=== PATIENT | female | born 1975 | race Two or more races ===

== ENCOUNTER 2024-11-18 11:08 | Inpatient (IN) | payer MEDICAID, SELFPAY ==
[2024-11-18] VITALS (15 sets, daily range): BP systolic 112–145; BP diastolic 64–87; PULSE 60–81; RESP 15–18; TEMP 36.3–36.7; O2SAT 98–100; BMI 31.4; BMI 24.6; BMI 23.0; BMI 24.0
--- NOTE | 2024-11-18 11:40 | XR_ITS ---
Examination: PA lateral chest 2 views TECHNIQUE: Upright PA lateral chest 2 views Date and time: November 18, 2024 1148 hours INDICATIONS: Shortness of breath coughing beginning 4 days ago. FINDINGS: Mild prominence left ventricle. No pneumonia or pulmonary edema. Prominent osteopenia IMPRESSION: No pneumonia or pulmonary edema
--- NOTE | 2024-11-18 11:41 | PD.EDRME ---
Rapid Medical Screening Exam RME Arrival date/time: 11/18/24 11:08 49-year-old female with a history of iron deficiency anemia, hypertension presents to the emergency room with a chief complaint of weakness, fatigue, cough, shortness of breath x 3 days. Patient was also sent to the emergency room for low hemoglobin level by her primary care provider. I have greeted and performed a focused initial assessment of this patient. A comprehensive ED assessment and evaluation of the patient, analysis of all test results, and completion of the medical decision making process will be conducted by additional ED providers. Chief Complaint: Flu Like Symptoms Time Seen by Provider: 11/18/24 11:28 Vital signs: Vital Signs Temperature 98.1 F 11/18/24 11:25 Pulse Rate 78 11/18/24 11:25 Respiratory Rate 18 11/18/24 11:25 Blood Pressure 140/79 H 11/18/24 11:25 Pulse Oximetry (%) 100 11/18/24 11:25 Oxygen Delivery Method Room Air 11/18/24 11:25 Vital signs reviewed by provider: Yes
[2024-11-18 12:14] LABS: Hematocrit 21.5 % (36.0-46.0); Immature Granulocytes Auto 0.01 Thou/mm3 (0.00-0.00); Mean Corpuscular Volume 63 fL (80-100); Monocytes % (Auto) 9 % (0-12); Neutrophils % (Auto) 47 % (37-80); Platelet Count 255 Thou/mm3 (140-440); RDW Standard Deviation 46.2 fL (36.4-46.3); Red Blood Count 3.42 Miln/mm3 (4.00-5.20)
[2024-11-18 12:16] LABS: Basophils % (Auto) 1 % (0-2.5); Eosinophils # (Auto) 0.4 Thou/mm3 (0.0-0.5); Eosinophils % (Auto) 8 % (0-10); Immature Granulocytes % (Auto) 0 % (0-0); Lymphocytes # (Auto) 1.6 Thou/mm3 (1.0-4.8); Lymphocytes % (Auto) 35 % (10-50); Monocytes # (Auto) 0.4 Thou/mm3 (0.0-0.8); Neutrophils # (Auto) 2.2 Thou/mm3 (1.8-7.7); Nucleated Red Blood Cell % 0 /100 WBC (0); White Blood Count 4.6 Thou/mm3 (3.6-11.0)
[2024-11-18 12:29] LABS: COVID-19 Antigen (In-House) Negative (Negative)
[2024-11-18 12:32] LABS: Partial Thromboplastin Time 24.6 Seconds (22.0-36.0); Prothrombin Time 10.5 Seconds (9.0-12.2)
[2024-11-18 12:37] LABS: Alanine Aminotransferase 10 U/L (10-49); Albumin, Serum 4.2 gm/dL (3.5-5.0); Albumin/Globulin Ratio 1.6 (1.2-2.2); Alkaline Phosphatase 39 U/L (46-116); Anion Gap 8 (7-16); Aspartate Amino Transferase 17 U/L (0-34); BUN/Creatinine Ratio 17 Ratio (12-20); Bilirubin,Total 0.6 mg/dL (0.3-1.2); Blood Urea Nitrogen 12 mg/dL (9-23); Carbon Dioxide 24.3 mMol/L (20.0-31.0); Chloride 109 mMol/L (98-107); Creatinine (Component) 0.7 mg/dL (0.6-1.3); Estimated Creatinine Clearance 67.3 mL/min (>60); Globulin 2.6 gm/dL (2.3-3.5); Glucose 121 mg/dL (74-106); Hemoglobin 5.8 g/dL (12.0-16.0); Osmolality,Calculated 281 (275-295); Potassium 3.4 mMol/L (3.4-5.1); Sodium 141 mMol/L (136-145); Total Protein 6.8 gm/dL (5.7-8.2); eGFR > 60 See Note
--- NOTE | 2024-11-18 13:31 | EDNOTE_ITS ---
<Statement entered by Christie Rosario MD - 11/19/24 06:10> As co-signing physician, I was present and available for consult prn. I concur with the plan and care as documented by the midlevel provider. ED General RME/HPI General Chief complaint: Flu Like Symptoms Stated complaint: FLU SYMPTOMS FOR 4 DAYS Time Seen by Provider: 11/18/24 11:28 Arrival date/time: 11/18/24 11:08 RME / HPI RME / HPI narrative: 49-year-old female with a history of iron deficiency anemia, hypertension presents to the emergency room with a chief complaint of weakness, fatigue, cough, shortness of breath x 3 days. Patient was also sent to the emergency room for low hemoglobin level by her primary care provider. Patient has been having chronic anemia, secondary to heavy menstruation, patient had irregular menstruation, sometimes he had 2 cycle in 1 month, currently patient is on day #5 and still bleeding a lot, since patient arrived patient is already changed at least 2 pads already soak, for the last 2 hours. She was supposed to be having hysterectomy with Dr. Barrera however it was postponed and canceled. Patient also complained of right lower abdominal pain and discomfort getting worse for the last several weeks. Related Data Home Medications ?Medication ?Instructions ?Recorded ?Confirmed metoprolol tartrate 25 mg tablet 25 mg PO QDAY 0 04/28/20 Allergies Allergy/AdvReac Type Severity Reaction Status Date / Time No Known Allergies Allergy Verified 11/18/24 11:11 Review of Systems Review of Systems Narrative Review of Systems: Review of system reviewed and within normal limits except mentioned in HPI ED Exam Narrative Physical exam: VITAL SIGNS: Reviewed. GENERAL APPEARANCE: Alert and interactive, follows commands, no acute distress, HEAD AND FACE: Non-traumatic. ENT: PERRL, pale conjunctiva eyelid no trauma, Mucous membrane moist. NECK: Supple, nontender, no nuchal rigidity. CHEST: No tenderness, no crepitus, no paradoxical movement, no retractions. LUNGS: Clear, well ventilated, symmetric, no rales, no wheezing, no ronchi, no stridor, good breath sounds bilaterally. HEART: Regular rate, regular rhythm, no murmur, no gallops. ABDOMEN: Soft, positive bowel sounds, nondistended, no guarding, nontender, no rebound, no masses, RECTAL: Deferred. GENITAL: Deferred. NEUROLOGICAL: Gross motor function intact sensory function intact, Appropriate for age. MUSCULOSKELETAL: low back nontender, full range of motion. EXTREMITIES: Nontender, full range of motion. SKIN: Color., dry, no rash, no lacerations, no abrasions, no contusions. LYMPHATICS: Deferred. Course Quality Measures none Orders Category Date Time Status Admit to Inpatient Status Routine Admission 11/18/24 17:28 Active Patient Condition Routine Admission 11/18/24 17:25 Ordered Activity as Tolerated Routine Care 11/18/24 17:25 Ordered Bedside Influenza A&B Antigen Test NOW Care 11/18/24 11:40 Completed Intake and Output QSHIFT Care 11/18/24 17:30 Ordered MRI Screening NOW Care 11/18/24 17:27 Active Notify provider NEEDED Care 11/18/24 17:25 Active Transfuse,blood/blood products ONCE Care 11/18/24 13:35 Active Consult to Gynecology Stat Cons 11/18/24 15:04 Ordered Diet Regular Diet 11/18/24 Dinner Active MR pelvis w con Stat Exams 11/18/24 Ordered US pelvic complete Stat Exams 11/18/24 15:04 Completed XR chest 2V Stat Exams 11/18/24 11:40 Completed CA 125 Stat Lab 11/18/24 17:32 Completed CBC AM DRAW Lab 11/19/24 05:00 Ordered CBC Stat Lab 11/18/24 11:57 Completed CEA [Carcinoembryonic Antigen] Stat Lab 11/18/24 17:32 Completed CMP [Comprehensive Metabolic Panel] Stat Lab 11/18/24 11:57 Completed COVID-19 Antigen (In-House) Stat Lab 11/18/24 11:44 Completed Comprehensive Metabolic Panel AM DRAW Lab 11/19/24 05:00 Ordered FFP [Fresh Frozen Plasma] Stat Lab 11/18/24 11:57 Results FSH [Follicle Stimulating Hormone] Stat Lab 11/18/24 11:57 Completed PT [Prothrombin Time with INR] Stat Lab 11/18/24 11:57 Completed PTT [Partial Thromboplastin Time] Stat Lab 11/18/24 11:57 Completed Partial Thromboplastin Time AM DRAW Lab 11/19/24 05:00 [address] Review Blood Smear Stat Lab 11/18/24 11:57 Completed Prothrombin Time with INR AM DRAW Lab 11/19/24 05:00 Ordered Red Blood Cells Stat Lab 11/18/24 11:57 Results Type and Screen Stat Lab 11/18/24 11:57 Results Acetaminophen Tab [Tylenol ES Tab] Med 11/18/24 13:34 Discontinued 500 mg PO X1 ONE Acetaminophen Tab [Tylenol Tab] Med 11/18/24 17:25 Active 650 mg PO Q6H PRN Metoprolol Tartrate [Lopressor] Med 11/19/24 09:00 Active 25 mg PO QDAY Ondansetron Inj [Zofran Inj] Med 11/18/24 17:25 Active 4 mg IVP Q6H PRN Oseltamivir [Tamiflu] Med 11/18/24 13:34 Discontinued 75 mg PO X1 ONE Pantoprazole [Protonix] Med 11/19/24 09:00 Active 40 mg PO QDAY bisacodyL [Dulcolax Supp] Med 11/18/24 17:25 Active 10 mg TN QDAY PRN bisacodyL [Dulcolax] Med 11/18/24 17:25 Active 10 mg PO QDAY PRN oxyCODONE/APAP 5/325 [Percocet 5/325] Med 11/18/24 17:25 Active 1 tab PO Q6H PRN Code Status Routine Oth 11/18/24 17:25 Ordered Vital Signs Vital signs: Vital Signs Temperature 98.1 F 11/18/24 11:25 Pulse Rate 78 11/18/24 11:25 Respiratory Rate 18 11/18/24 11:25 Blood Pressure 140/79 H 11/18/24 11:25 Pulse Oximetry (%) 100 11/18/24 11:25 Oxygen Delivery Method Room Air 11/18/24 11:25 Discharge Plan Plan Patient Disposition: Admit Acute Care w/in Hospital Problem List Clinical Impression: Anemia requiring transfusions, Uterine mass MDM Narrative MDM hospital course: 49-year-old female with a history of iron deficiency anemia, hypertension presents to the emergency room with a chief complaint of weakness, fatigue, cough, shortness of breath x 3 days. Patient was also sent to the emergency room for low hemoglobin level by her primary care provider. Patient has been having chronic anemia, secondary to heavy menstruation, patient had irregular menstruation, sometimes he had 2 cycle in 1 month, currently patient is on day #5 and still bleeding a lot, since patient arrived patient is already changed at least 2 pads already soak, for the last 2 hours. She was supposed to be having hysterectomy with Dr. Barrera however it was postponed and canceled. Patient also complained of right lower abdominal pain and discomfort getting worse for the last several weeks. Ultrasound of the pelvis showed large uterine mass Patient's hemoglobin was noted to be 5.8 hematocrit of 21.5 rest of the labs unremarkable. Patient received 3 units packed RBC Patient was also given fresh frozen plasma I refer the patient to Dr. Preston CHECK OUT CLERK on-call, who admitted the patient. Medication Administration(s) Medication Administration History Acetaminophen (Acetaminophen 325 Mg Tablet) 650 mg PO Q6H PRN PRN Reason: Fever >101.5 Stop: 12/18/24 17:24 Bisacodyl (Bisacodyl 5 Mg Tabec) 10 mg PO QDAY PRN PRN Reason: CONSTIPATION Stop: 12/18/24 17:24 Bisacodyl (Bisacodyl 10 Mg Supp) 10 mg TN QDAY PRN PRN Reason: CONSTIPATION Stop: 12/18/24 17:24 Metoprolol Tartrate (Metoprolol Tartrate 25 Mg Tablet) 25 mg PO QDAY [facility] Stop: 12/19/24 08:59 Ondansetron HCl (Ondansetron Inj 2 Mg/Ml Inj 2 Ml) 4 mg IVP Q6H PRN PRN Reason: NAUSEA OR VOMITING Stop: 12/18/24 17:24 Last Admin: 11/18/24 19:56 Dose: 4 mg Documented By: EF Oxycodone/Acetaminophen (Oxycodone/Apap 5/325 Tablet) 1 tab PO Q6H PRN PRN Reason: PAIN SCALE 4-6 (Moderate Stop: 11/23/24 17:24 Last Admin: 11/18/24 17:52 Dose: 1 tab Documented By: EF Pantoprazole Sodium (Pantoprazole 40 Mg Tablet) 40 mg PO QDAY [facility] Stop: 12/19/24 08:59 Discontinued Medications Acetaminophen (Acetaminophen 500 Mg Tablet) 500 mg PO X1 ONE Stop: 11/18/24 13:35 Last Admin: 11/18/24 13:41 Dose: 500 mg Documented By: EF Oseltamivir Phosphate (Oseltamivir 75 Mg Capsule) 75 mg PO X1 ONE Stop: 11/18/24 13:35 Last Admin: 11/18/24 13:41 Dose: 75 mg Documented By: EF Diagnosis Differential diagnosis: Uterine mass, anemia, vaginal bleeding Most likely dx, and/or detailed dx discussion: Uterine mass anemia vaginal bleeding requiring transfusion Dispositon Disposition: Admit
[2024-11-18] MEDS: OSELTAMIVIR 75 MG CAPSULE PO (13:41)
[2024-11-18] MEDS: ACETAMINOPHEN 500 MG TABLET PO (13:41)
--- NOTE | 2024-11-18 15:04 | XR_ITS ---
Examination: Pelvic ultrasound, transabdominal, complete Technique: Transabdominal ultrasound of the pelvis performed using grayscale imaging Date and time of exam: November 18, 2024 1519 hours Indications: Abnormal uterine bleeding beginning November 12, 2024 FINDINGS: Uterus 13.8 cm, uterine fundal mass 12.3 x 10.0 x 12.0 cm Right ovary obscured by bowel gas Enlarged left ovary with cystic solid components, 4.2 x 3.7 x 2.8 cm IMPRESSION: Large uterine mass 12.3 x 10.0 x 12.0 cm with vascularity Complex cystic solid left adnexal mass Recommend MRI pelvis follow-up pre and postcontrast
--- NOTE | 2024-11-18 17:30 | ESHP_ITS ---
Documentation for date of: 11/18/24 [facility] History of Present Illness History of present illness: Patient presents to the emergency room with heavy vaginal bleeding and flu-like symptoms. She has a history of long-standing abnormal uterine bleeding and known uterine fibroids. The patient was scheduled for surgery last year, but the procedure did not occur due to the doctor's relocation and the patient starting a new job. The current episode of heavy vaginal bleeding has resulted in a critically low hemoglobin level of 5.8, necessitating blood transfusion. The patient reports a pattern of intermittent bleeding associated with her fibroid, describing periods of heavy bleeding followed by 3-4 months without any bleeding before recurrence. The patient has undergone a tubal ligation procedure and reports no desire for future pregnancies. She has one child with her current , and three children in total. Her obstetric history is G1+ P1+ A0 L1+. The patient is currently on Lupron (leuprolide for depot) injection, which stabilizes her condition and buys time for surgery. She has recently started a new job and has savings to cover a month off work if needed for medical treatment. Review of systems is positive for flu-like symptoms and heavy vaginal bleeding. Diagnostic Test Results and Labs: - Hemoglobin (Andressa Nov 18 2024): 5.8 g/dL (critical) - Pelvic ultrasound: Uterus measuring 13.8 cm Uterine fundal mass measuring 12.3 x 10 x 12 cm Right ovary obscured by gas Left ovary enlarged with cystic and solid components measuring 4.2 x 3.7 x 2.8 cm Meds Home Medications and Allergies Home Medications ?Medication ?Instructions ?Recorded ?Confirmed ?Type metoprolol tartrate 25 mg tablet 25 mg PO QDAY 0 04/28/20 History Allergies Allergy/AdvReac Type Severity Reaction Status Date / Time No Known Allergies Allergy Verified 11/18/24 11:11 Exam - [facility] Vital Signs Temp Pulse Resp BP Pulse Ox O2 Del Method 97.6 F 70 18 137/83 H 100 Room Air 11/18/24 17:14 11/18/24 17:14 11/18/24 17:14 11/18/24 17:14 11/18/24 17:14 11/18/24 15:52 Constitutional Constitutional: no acute distress Routine HEENT Exam Head: Present normocephalic and atraumatic Eye: Present EOMI and PERRL ENT: Present mucous membranes moist Routine Neck Exam Neck: Present supple and trachea midline Routine Respiratory Exam Respiratory: Present chest non-tender, lungs clear, normal breath sounds and no resp distress Routine Cardiovascular Exam Cardiovascular: Present RRR Routine Abdominal Exam Abdominal: Present soft and normoactive bowel sounds Routine Extremities Exam Extremities: Present full ROM Routine Skin Exam Skin: Present intact and dry Routine Neurological Exam Neurological: Present alert, oriented X3 and CN II-XII intact Routine Psychiatric Exam Psychiatric: Present normal affect and normal thought process [facility] - Results Labs 11/18/24 11:57 11/18/24 11:57 Labs: Short CBC 11/18/24 Range/Units 11:57 WBC 4.6 (3.6-11.0) Thou/mm3 Hgb 5.8 L* (12.0-16.0) g/dL Hct 21.5 L* (36.0-46.0) % Plt Count 255 (140-440) Thou/mm3 BMP 11/18/24 11:57 Sodium 141 Potassium 3.4 Chloride 109 H Carbon Dioxide 24.3 BUN 12 Creatinine 0.7 Glucose 121 H Calcium 8.0 L Liver Function 11/18/24 Range/Units 11:57 Total Bilirubin 0.6 (0.3-1.2) mg/dL AST 17 (0-34) U/L ALT 10 (10-49) U/L Alkaline Phosphatase 39 L (46-116) U/L Albumin 4.2 (3.5-5.0) gm/dL Assessment and Plan Assessment and plan (1) Intramural leiomyoma of uterus: Status: Acute (2) Abnormal uterine and vaginal bleeding, unspecified: Status: Acute (3) Acute blood loss anemia: Status: Acute (4) Anemia requiring transfusions: Status: Acute Additional Assessment & Plan Additional Plan: Abnormal Uterine Bleeding with Severe Anemia: - Heavy vaginal bleeding due to large uterine fibroid. - Pelvic ultrasound shows uterus measuring 13.8 cm. - Uterine fundal mass measuring 12.3 x 10 x 12 cm, consistent with leiomyoma. - Critical anemia with hemoglobin of 5.8 g/dL. - Patient elected to proceed with surgical intervention during current admission. Plan: - Initiate blood transfusion: 3 units packed red blood cells, 1 unit fresh frozen plasma. - Admit patient for definitive surgical management. - Proceed with total hysterectomy after MRI pelvis and tumor marker results. Surgical Risks and Considerations: - Hysterectomy Risks: * Potential for bleeding * Risk of infection * Potential damage to surrounding organs (bladder, bowel, ureters) * Potential need for blood transfusion - Anesthesia Risks: * Allergic reactions * Respiratory complications * Cardiovascular stress * Potential for anesthesia-related complications - Surgical Risks: * Potential for wound complications * Risk of deep vein thrombosis * Potential for post-operative pain * Hormonal changes post-surgery - Await MRI pelvis results and tumor markers before final surgical scheduling. - Comprehensive informed consent to be obtained discussing all risks and potential complications. - Prepare for potential one-month disability and recovery period. Complex Left Ovarian Cyst: - Pelvic ultrasound shows enlarged left ovary. - Cystic and solid components measuring 4.2 x 3.7 x 2.8 cm. - Radiologist recommends MRI pelvis pre- and post-contrast. Plan: - Order tumor markers. - Schedule MRI pelvis with pre- and post-contrast. - Evaluate potential concurrent management of ovarian cyst during hysterectomy. Quality Measures Quality Measures VTE prophylaxis
[2024-11-18] MEDS: oxyCODONE/APAP 5/325 TABLET 1 TAB PO (17:52)
[2024-11-18 17:56] LABS: Path Review Blood Smear Sent to Pathologist
[2024-11-18 18:26] LABS: Carcinoembryonic Antigen 0.8 ng/mL (0.0-5.0)
[2024-11-18] MEDS: ONDANSETRON INJ 2 MG/ML INJ 2 ML 4 MG IVP (19:56)
[2024-11-18] MEDS: PROMETHAZINE INJ 25 MG in SODIUM CHLORIDE 0.9% 50 ML IV (21:56)
[2024-11-19] VITALS (7 sets, daily range): BP systolic 110–135; BP diastolic 64–83; PULSE 65–76; RESP 16–18; TEMP 36.1–36.8; O2SAT 96–98
--- NOTE | 2024-11-19 | XR_ITS ---
Examination: MRI pelvis with intravenous contrast TECHNIQUE: Axial sagittal coronal MRI pelvis images post intravenous contrast INDICATIONS: Abdominal pain and vaginal bleeding months, pelvic sonogram November 18, 2024 enlarged uterus uterine fundal mass enlarged left ovary Date and time: November 18, 2024 10:19 AM FINDINGS: Uterus 14 x 12 x 10 cm Uterine fundal mass 12 x 10 x 11 cm Left adnexal primarily cystic mass noted 4 x 4 cm No free fluid in the pelvis No pelvic lymphadenopathy IMPRESSION: Findings most consistent with very large uterine area of fibroid degeneration replacing the uterine fundus 4 x 4 centimeters left ovarian cystic mass
[2024-11-19 05:15] LABS: Basophils % (Auto) 1 % (0-2.5); Eosinophils # (Auto) 0.3 Thou/mm3 (0.0-0.5); Eosinophils % (Auto) 6 % (0-10); Hematocrit 32.7 % (36.0-46.0); Hemoglobin 9.7 g/dL (12.0-16.0); Immature Granulocytes % (Auto) 0 % (0-0); Immature Granulocytes Auto 0.01 Thou/mm3 (0.00-0.00); Lymphocytes # (Auto) 1.7 Thou/mm3 (1.0-4.8); Lymphocytes % (Auto) 36 % (10-50); Mean Corpuscular HGB Conc 29.7 g/dl (31.0-37.0); Mean Corpuscular Hemoglobin 21.3 pg (25.0-35.0); Mean Corpuscular Volume 72 fL (80-100); Monocytes # (Auto) 0.4 Thou/mm3 (0.0-0.8); Monocytes % (Auto) 8 % (0-12); Neutrophils # (Auto) 2.4 Thou/mm3 (1.8-7.7); Neutrophils % (Auto) 50 % (37-80); Nucleated Red Blood Cell % 0 /100 WBC (0); Platelet Count 249 Thou/mm3 (140-440); RDW Standard Deviation 59.4 fL (36.4-46.3); Red Blood Count 4.55 Miln/mm3 (4.00-5.20); White Blood Count 4.8 Thou/mm3 (3.6-11.0)
[2024-11-19 05:22] LABS: Partial Thromboplastin Time 25.1 Seconds (22.0-36.0); Prothrombin Time 10.7 Seconds (9.0-12.2)
[2024-11-19 05:49] LABS: Alanine Aminotransferase 8 U/L (10-49); Albumin, Serum 3.8 gm/dL (3.5-5.0); Albumin/Globulin Ratio 1.5 (1.2-2.2); Alkaline Phosphatase 37 U/L (46-116); Anion Gap 9 (7-16); Aspartate Amino Transferase 15 U/L (0-34); BUN/Creatinine Ratio 14 Ratio (12-20); Bilirubin,Total 0.7 mg/dL (0.3-1.2); Blood Urea Nitrogen 10 mg/dL (9-23); Calcium 8.1 mg/dL (8.3-10.6); Calcium (Corrected) 8.3 mg/dL (8.5-10.1); Carbon Dioxide 25.7 mMol/L (20.0-31.0); Chloride 110 mMol/L (98-107); Creatinine (Component) 0.7 mg/dL (0.6-1.3); Estimated Creatinine Clearance 72.9 mL/min (>60); Globulin 2.5 gm/dL (2.3-3.5); Glucose 95 mg/dL (74-106); Osmolality,Calculated 287 (275-295); Potassium 3.6 mMol/L (3.4-5.1); Sodium 145 mMol/L (136-145); Total Protein 6.3 gm/dL (5.7-8.2); eGFR > 60 See Note
[2024-11-19] MEDS: METOPROLOL TARTRATE 25 MG TABLET PO (08:33)
[2024-11-19] MEDS: PANTOPRAZOLE 40 MG TABLET PO (08:34)
--- NOTE | 2024-11-19 09:14 | PC.SS ---
Follow up note: MRI is pending.
[2024-11-19 09:15] LABS: Misc Send Out* See Sep Rpt
--- NOTE | 2024-11-19 10:41 | PC.SS ---
SS met with patient regarding her d/c plan. Pt is alert/oriented. Pt was admitted for Menorhagia, Pelvic Mass. Pt confirmed demographic and contact information is correct on facesheet. Pt resides with and dtr. Pt ambulates independently without assistance or DME. Pt is ok with all ADLs. Patient?s pharmacy of choice is [facility]. Pt named her , Smiley Palencia medical decision maker if she is unable. Patient?s choice is to return home upon d/c. Pt does not have an advance directive, SS offered, and pt declined. Pt states not diabetic and is not on dialysis. D/C plan: Return home Next of Kin: Julissaannelisekasianoe Palencia, , phone# [phone] PCP: [facility] on [address] Address: Correct on facesheet
[2024-11-20] VITALS (19 sets, daily range): BP systolic 93–135; BP diastolic 56–88; PULSE 48–91; RESP 12–20; TEMP 36.2–36.8; O2SAT 97–100
[2024-11-20 05:33] LABS: Basophils % (Auto) 0 % (0-2.5); Eosinophils # (Auto) 0.2 Thou/mm3 (0.0-0.5); Eosinophils % (Auto) 2 % (0-10); Hematocrit 31.1 % (36.0-46.0); Hemoglobin 9.6 g/dL (12.0-16.0); Immature Granulocytes % (Auto) 0 % (0-0); Immature Granulocytes Auto 0.02 Thou/mm3 (0.00-0.00); Lymphocytes # (Auto) 1.8 Thou/mm3 (1.0-4.8); Lymphocytes % (Auto) 26 % (10-50); Mean Corpuscular HGB Conc 30.9 g/dl (31.0-37.0); Mean Corpuscular Hemoglobin 21.4 pg (25.0-35.0); Mean Corpuscular Volume 69 fL (80-100); Monocytes # (Auto) 0.3 Thou/mm3 (0.0-0.8); Monocytes % (Auto) 4 % (0-12); Neutrophils # (Auto) 4.4 Thou/mm3 (1.8-7.7); Neutrophils % (Auto) 66 % (37-80); Nucleated Red Blood Cell % 0 /100 WBC (0); Platelet Count 254 Thou/mm3 (140-440); RDW Standard Deviation 59.7 fL (36.4-46.3); Red Blood Count 4.49 Miln/mm3 (4.00-5.20); White Blood Count 6.6 Thou/mm3 (3.6-11.0)
[2024-11-20 05:49] LABS: Fibrinogen 379 mg/dL (175-375); Partial Thromboplastin Time 24.8 Seconds (22.0-36.0); Prothrombin Time 10.5 Seconds (9.0-12.2)
[2024-11-20 06:07] LABS: Alanine Aminotransferase 14 U/L (10-49); Albumin, Serum 3.7 gm/dL (3.5-5.0); Albumin/Globulin Ratio 1.5 (1.2-2.2); Alkaline Phosphatase 40 U/L (46-116); Anion Gap 10 (7-16); Aspartate Amino Transferase 19 U/L (0-34); BUN/Creatinine Ratio 20 Ratio (12-20); Bilirubin,Total 0.7 mg/dL (0.3-1.2); Blood Urea Nitrogen 16 mg/dL (9-23); Calcium (Corrected) 8.2 mg/dL (8.5-10.1); Carbon Dioxide 27.1 mMol/L (20.0-31.0); Chloride 108 mMol/L (98-107); Creatinine (Component) 0.8 mg/dL (0.6-1.3); Estimated Creatinine Clearance 63.8 mL/min (>60); Globulin 2.4 gm/dL (2.3-3.5); Glucose 87 mg/dL (74-106); Osmolality,Calculated 288 (275-295); Potassium 3.8 mMol/L (3.4-5.1); Sodium 145 mMol/L (136-145); Total Protein 6.1 gm/dL (5.7-8.2); eGFR > 60 See Note
[2024-11-20] MEDS: PANTOPRAZOLE 40 MG TABLET PO (08:37)
[2024-11-20] MEDS: METOPROLOL TARTRATE 25 MG TABLET PO (08:37)
--- NOTE | 2024-11-20 08:48 | ESPR_ITS ---
Documentation for date of: 11/19/24 [facility] Subjective Subjective Interval history: Patient is doing well this morning. She has completed all her blood product transfusions, posttransfusion hemoglobin is 9.6 patient continues to have heavy vaginal bleeding and she is soaking through 2-3 pads per hour Flu symptoms have improved Exam Vital Signs Temp Pulse Resp BP Pulse Ox O2 Del Method 97.2 F 91 18 133/75 H 99 Room Air 11/20/24 08:00 11/20/24 08:37 11/20/24 08:00 11/20/24 08:37 11/20/24 08:00 11/20/24 04:00 Constitutional Constitutional: no acute distress Routine HEENT Exam Head: Present normocephalic and atraumatic Eye: Present EOMI and PERRL ENT: Present mucous membranes moist Routine Neck Exam Neck: Present supple and trachea midline Routine Respiratory Exam Respiratory: Present chest non-tender, lungs clear, normal breath sounds and no resp distress Routine Cardiovascular Exam Cardiovascular: Present RRR Routine Abdominal Exam Abdominal: Present soft and normoactive bowel sounds Routine Extremities Exam Extremities: Present full ROM Routine Skin Exam Skin: Present intact and dry Routine Neurological Exam Neurological: Present alert, oriented X3 and CN II-XII intact Routine Psychiatric Exam Psychiatric: Present normal affect and normal thought process Urinary Catheter Management Cath placed during this visit: no [facility] - PN: Obj Data Labs 11/20/24 04:36 11/20/24 04:36 Labs: Laboratory Results - last 24 hr 11/20/24 04:36 WBC 6.6 RBC 4.49 Hgb 9.6 L Hct 31.1 L MCV 69 L MCH 21.4 L MCHC 30.9 L RDW Std Deviation 59.7 H Plt Count 254 Neut % (Auto) 66 Lymph % (Auto) 26 [place]ball % (Auto) 4 Eos % (Auto) 2 Baso % (Auto) 0 Neut # (Auto) 4.4 Lymph # (Auto) 1.8 Kimball # (Auto) 0.3 Eos # (Auto) 0.2 Baso # (Auto) 0.0 Immature Gran # (Auto) 0.02 H Absolute Nucleated RBC 0.00 Immature Gran % 0 Nucleated RBC % 0 PT 10.5 INR 1.0 APTT 24.8 Fibrinogen 379 H Sodium 145 Potassium 3.8 Chloride 108 H Carbon Dioxide 27.1 Anion Gap 10 BUN 16 Creatinine 0.8 Estim Creat Clear Calc 63.8 eGFR > 60 BUN/Creatinine Ratio 20 Glucose 87 Calculated Osmolality 288 Calcium 8.0 L Corrected Calcium 8.2 L Total Bilirubin 0.7 AST 19 ALT 14 Alkaline Phosphatase 40 L Total Protein 6.1 Albumin 3.7 Globulin 2.4 Albumin/Globulin Ratio 1.5 [facility] - A/P Assessment and plan (1) Intramural leiomyoma of uterus: Status: Acute (2) Abnormal uterine and vaginal bleeding, unspecified: Status: Acute Assessment and plan: Patient continues to have heavy vaginal bleeding, will continue to monitor CBC and signs of bleeding. Possible surgical intervention if she does not improve (3) Acute blood loss anemia: Status: Acute (4) Anemia requiring transfusions: Status: Acute Postoperative Procedures: Procedures Operation Date: 11/20/24 11:15 <No data on this case meets the specified criteria> Time Spent With Patient Time: Total time spent is greater than 50% in coordination of care (as documented) at patient's floor/unit and/or counseling patient: Time with patient: less than 15 minutes
--- NOTE | 2024-11-20 08:50 | PD.GYNPROG ---
Documentation for date of: 11/20/24 [facility] Subjective Subjective Interval history: Patient reports continued heavy vaginal bleeding with soakage of multiple pads per hour She denies any shortness of breath, denies any weakness or dizziness or signs of major blood loss Exam Vital Signs Temp Pulse Resp BP Pulse Ox O2 Del Method 97.2 F 91 18 133/75 H 99 Room Air 11/20/24 08:00 11/20/24 08:37 11/20/24 08:00 11/20/24 08:37 11/20/24 08:00 11/20/24 04:00 Constitutional Constitutional: no acute distress Routine HEENT Exam Head: Present normocephalic and atraumatic Eye: Present EOMI and PERRL ENT: Present mucous membranes moist Routine Neck Exam Neck: Present supple and trachea midline Routine Respiratory Exam Respiratory: Present chest non-tender, lungs clear, normal breath sounds and no resp distress Routine Cardiovascular Exam Cardiovascular: Present RRR Routine Abdominal Exam Abdominal: Present soft and normoactive bowel sounds Routine Extremities Exam Extremities: Present full ROM Routine Skin Exam Skin: Present intact and dry Routine Neurological Exam Neurological: Present alert, oriented X3 and CN II-XII intact Routine Psychiatric Exam Psychiatric: Present normal affect and normal thought process Urinary Catheter Management Cath placed during this visit: no [facility] - PN: Obj Data Labs 11/20/24 04:36 11/20/24 04:36 Labs: Laboratory Results - last 24 hr 11/20/24 04:36 WBC 6.6 RBC 4.49 Hgb 9.6 L Hct 31.1 L MCV 69 L MCH 21.4 L MCHC 30.9 L RDW Std Deviation 59.7 H Plt Count 254 Neut % (Auto) 66 Lymph % (Auto) 26 [place] % (Auto) 4 Eos % (Auto) 2 Baso % (Auto) 0 Neut # (Auto) 4.4 Lymph # (Auto) 1.8 [place] # (Auto) 0.3 Eos # (Auto) 0.2 Baso # (Auto) 0.0 Immature Gran # (Auto) 0.02 H Absolute Nucleated RBC 0.00 Immature Gran % 0 Nucleated RBC % 0 PT 10.5 INR 1.0 APTT 24.8 Fibrinogen 379 H Sodium 145 Potassium 3.8 Chloride 108 H Carbon Dioxide 27.1 Anion Gap 10 BUN 16 Creatinine 0.8 Estim Creat Clear Calc 63.8 eGFR > 60 BUN/Creatinine Ratio 20 Glucose 87 Calculated Osmolality 288 Calcium 8.0 L Corrected Calcium 8.2 L Total Bilirubin 0.7 AST 19 ALT 14 Alkaline Phosphatase 40 L Total Protein 6.1 Albumin 3.7 Globulin 2.4 Albumin/Globulin Ratio 1.5 [facility] - A/P Assessment and plan (1) Intramural leiomyoma of uterus: Status: Acute (2) Abnormal uterine and vaginal bleeding, unspecified: Status: Acute Assessment and plan: Continue current plan. I had a prolonged discussion with the patient and after consideration of all options including the necessity to return to the ER for multiple blood transfusions she elected to proceed with surgical intervention. Will add her on for exploratory laparotomy, possible myomectomy or possible total abdominal hysterectomy Patient will stay n.p.o. from now onwards Preoperative labs ordered to be reviewed before surgery (3) Acute blood loss anemia: Status: Acute (4) Anemia requiring transfusions: Status: Acute Postoperative Procedures: Procedures Operation Date: 11/20/24 11:15 <No data on this case meets the specified criteria> Time Spent With Patient Time: Total time spent is greater than 50% in coordination of care (as documented) at patient's floor/unit and/or counseling patient: Time with patient: less than 15 minutes
--- NOTE | 2024-11-20 13:13 | PD.GYNPROC ---
Operative Note - SURGICAL SERVICES DIRECTOR Procedure Date of procedure: 11/20/24 Procedure Performed: Exploratory laparotomy and total abdominal hysterectomy with salpingectomy and left ovarian cystectomy Indication: 39-year-old with 13 cm leiomyoma of uterus Recurrent episodes of menorrhagia with severe blood loss anemia Anesthesia type: General Procedure description: Informed consent was obtained, and the patient was taken to the operating room. Identity was confirmed by double identifiers, and she was placed on the operating table. General anesthesia was administered, and the patient was secured and positioned in the supine position. The abdomen and perineum were prepped in the usual sterile fashion, a Penn catheter was placed to continuous drainage, and sterile drapes were applied. A timeout procedure was completed. On examination under anesthesia, a large leiomyoma was palpated, extending approximately two fingerbreadths above the umbilicus. The uterus was estimated to be consistent with a 24-week gestational size. A vertical infraumbilical skin incision was made with a scalpel and carried down through the subcutaneous fat to the rectus fascia. The rectus fascia was incised along the midline and extended superiorly and inferiorly using Brown scissors. The fascia was grasped with Jericho clamps and dissected off the anterior surface of the rectus muscles. The rectus muscles were in the midline, and the peritoneum was identified and entered bluntly. The peritoneal opening was gently stretched to create adequate access into the pelvic cavity. An Felipe O-ring retractor was placed, and the bowel was packed out of the operative field. The uterus was grasped using a double-tooth tenaculum. Significant bladder adhesions were noted, and approximately 40 minutes were spent carefully dissecting and lysing the adhesions to gain access to the uterovesical peritoneum. The uterus was placed under traction, and dissection was initiated on the right side. The utero-ovarian ligament was divided, followed by separate dissection and division of the fallopian tube. The round ligament was then divided, and the anterior and posterior leaves of the broad ligament were . The anterior leaf was dissected to create a bladder flap, and the posterior leaf was dissected down to the level of the uterosacral ligaments. Dissection continued incrementally down the uterine body until the uterine artery was skeletonized, occluded, and divided, progressing to the level of the cervix. The same dissection sequence was performed on the contralateral side. Once the cervix was reached, a pair of Emily clamps were placed across the cervix, and the uterus was amputated and sent for pathological examination. The vaginal angles were tagged using 0 Vicryl sutures. The vaginal cuff was closed with 0 Vicryl in a running fashion, and the angles were tied together to reinforce the uterosacral ligaments. The cuff was copiously irrigated, and hemostasis was confirmed. A layer of Surgicel was placed for additional hemostasis. All instruments were withdrawn. The bowel packing was removed. The Felipe retractor was removed. The peritoneum was closed with 2-0 Vicryl in a running fashion. The rectus muscles were reapproximated with 3-0 Vicryl. The rectus fascia was closed with running 1-0 PDS suture. The subcutaneous tissue was copiously irrigated. The subcutaneous fat was closed with 3-0 plain gut suture. The skin was closed using yony. The skin was thoroughly cleaned, and a sterile pressure dressing was applied. The patient was undraped. General anesthesia was reversed, and she was transferred to the recovery room in stable and awake condition. The patient tolerated the procedure well. No acute complications were encountered. All instrument, sponge, and lap counts were correct ?2. Specimen: uterus, left tube and right tube Estimated blood loss (ml): 100 Complications: none Surgical staff Operation Date: 11/20/24 11:15 Case Staff Anesthesiologist: Kurtis Pino RNtechnician's helper: Linda Sinclair Diagnosis Discharge Diagnosis (1) Uterine mass: Status: Acute (2) Anemia requiring transfusions: Status: Acute (3) Acute blood loss anemia: Status: Acute (4) Abnormal uterine and vaginal bleeding, unspecified: Status: Acute (5) Intramural leiomyoma of uterus: Status: Acute Problem List Completed Was Problem List Reviewed/Reconciled?: Yes
[2024-11-20] MEDS: KETOROLAC INJ 30 MG/ML VIAL 15 MG IVP (13:40)
[2024-11-20] MEDS: SODIUM CHLORIDE 0.9% 1000 ML 1,000 ML 200 ML IV ×2 (13:50→18:11)
[2024-11-20] MEDS: Morphine Sulfate PF 1 MG/ML PCA VIAL 30 ML 30 MG IV (13:57)
[2024-11-20] MEDS: fentaNYL CIT INJ 50 mCg/ML AMP 2ML IVP (14:02)
--- NOTE | 2024-11-20 14:21 | SUR.PHASEI ---
Addendum entered by Lauren Avila RN 11/20/24 15:06: morphine pce started 1357, not 1352 Original Note: 1324 patient sleepy and arousable, breathing unlabored, s/p exploratory laparotomy, total abdominal hysterectomy, salpingectomy, left ovarian cystectomy, dressing to abdomen dry with no bleeding, no active vaginal bleeding noted. 16fr pacheco present and draining well, no blood clots noted. Report received from Neris SUERO and Dr. Pino. 1340 patient having pain, toradol given, 1352 morphine silk screen printer started, patient educated on how to use VERTICAL LATHE OPERATOR pump 1402 fentanyl 50mcg x1 dose given 1420 patient allowes to sleep, vital signs stable, breathing unlabored, resting comfortably in rney
--- NOTE | 2024-11-20 14:40 | SUR.PHASEI ---
1440 patient is sleepy and arousable, breathing unlabored, dressing to abdomen dry with no bleeding, no active vaginal bleeding noted. report given to Jalen SUERO, patient transferred to room 381 accompanied by family members. Patient has morphine MANAGER BABY and is aware of how to use senior quality technician pump for pain management. abdominal binder placed on patient.
[2024-11-20] MEDS: ACETAMINOPHEN IVPB 1,000 MG/100 ML VIAL 250 MG IV ×2 (18:10→23:37)
[2024-11-20] MEDS: ONDANSETRON INJ 2 MG/ML INJ 2 ML 4 MG IV (18:35)
[2024-11-21] VITALS (26 sets, daily range): BP systolic 104–155; BP diastolic 68–98; PULSE 47–66; RESP 12–52; TEMP 35.5–36.6; O2SAT 96–100
[2024-11-21] MEDS: SODIUM CHLORIDE 0.9% 1000 ML 1,000 ML 200 ML IV ×2 (01:50→10:55)
[2024-11-21] MEDS: ACETAMINOPHEN IVPB 1,000 MG/100 ML VIAL 250 MG IV (05:18)
[2024-11-21 05:56] LABS: Basophils % (Auto) 0 % (0-2.5); Eosinophils % (Auto) 0 % (0-10); Hematocrit 20.5 % (36.0-46.0); Immature Granulocytes % (Auto) 0 % (0-0); Immature Granulocytes Auto 0.03 Thou/mm3 (0.00-0.00); Lymphocytes # (Auto) 0.7 Thou/mm3 (1.0-4.8); Lymphocytes % (Auto) 9 % (10-50); Mean Corpuscular HGB Conc 30.2 g/dl (31.0-37.0); Mean Corpuscular Hemoglobin 21.4 pg (25.0-35.0); Mean Corpuscular Volume 71 fL (80-100); Monocytes # (Auto) 0.3 Thou/mm3 (0.0-0.8); Monocytes % (Auto) 4 % (0-12); Neutrophils # (Auto) 6.5 Thou/mm3 (1.8-7.7); Neutrophils % (Auto) 87 % (37-80); Nucleated Red Blood Cell % 0 /100 WBC (0); Platelet Count 141 Thou/mm3 (140-440); White Blood Count 7.5 Thou/mm3 (3.6-11.0)
[2024-11-21 06:02] LABS: Hemoglobin 6.2 g/dL (12.0-16.0)
[2024-11-21 09:05] LABS: Anion Gap 10 (7-16); BUN/Creatinine Ratio 15 Ratio (12-20); Blood Urea Nitrogen 9 mg/dL (9-23); Calcium 6.9 mg/dL (8.3-10.6); Carbon Dioxide 21.8 mMol/L (20.0-31.0); Chloride 110 mMol/L (98-107); Creatinine (Component) 0.6 mg/dL (0.6-1.3); Glucose 112 mg/dL (74-106); Osmolality,Calculated 282 (275-295); Potassium 3.8 mMol/L (3.4-5.1); Sodium 142 mMol/L (136-145); eGFR > 60 See Note
[2024-11-21] MEDS: METOPROLOL TARTRATE 25 MG TABLET PO (09:21)
[2024-11-21] MEDS: PANTOPRAZOLE 40 MG TABLET PO (09:21)
[2024-11-21] MEDS: bisacodyL 5 MG TABEC 10 MG PO (09:21)
--- NOTE | 2024-11-21 09:21 | PD.GYNPROG ---
Documentation for date of: 11/21/24 SENIOR BENEFITS ANALYST Subjective Subjective Interval history: Patient doing well this morning. Pain is adequately controlled on the current regimen. No incisional complaints, no chest pain, shortness of breath, breathing difficulties. Ambulating, tolerating p.o., Adequate UOP Exam Vital Signs Temp Pulse Resp BP Pulse Ox O2 Del Method O2 Flow Rate 97.8 F 47 L 18 133/75 H 100 Room Air 2 11/21/24 07:40 11/21/24 07:40 11/21/24 07:40 11/21/24 07:40 11/21/24 07:40 11/21/24 07:40 11/21/24 07:06 Constitutional Constitutional: no acute distress Routine HEENT Exam Head: Present normocephalic and atraumatic Eye: Present EOMI and PERRL ENT: Present mucous membranes moist Routine Neck Exam Neck: Present supple and trachea midline Routine Respiratory Exam Respiratory: Present chest non-tender, lungs clear, normal breath sounds and no resp distress Routine Cardiovascular Exam Cardiovascular: Present RRR Routine Abdominal Exam Abdominal: Present soft and normoactive bowel sounds Routine Extremities Exam Extremities: Present full ROM Routine Skin Exam Skin: Present intact and dry Routine Neurological Exam Neurological: Present alert, oriented X3 and CN II-XII intact Routine Psychiatric Exam Psychiatric: Present normal affect and normal thought process Urinary Catheter Management Cath placed during this visit: no SENIOR BENEFITS ANALYST - PN: Obj Data Labs 11/21/24 05:36 11/21/24 08:10 Labs: Laboratory Results - last 24 hr 11/18/24 11/21/24 11/21/24 11:57 05:36 08:10 WBC 7.5 RBC 2.90 L Hgb 6.2 L* D Hct 20.5 L* D MCV 71 L MCH 21.4 L MCHC 30.2 L RDW Std Deviation 62.0 H Plt Count 141 D Neut % (Auto) 87 H Lymph % (Auto) 9 L Daggett % (Auto) 4 Eos % (Auto) 0 Baso % (Auto) 0 Neut # (Auto) 6.5 Lymph # (Auto) 0.7 L [place] # (Auto) 0.3 Eos # (Auto) 0.0 Baso # (Auto) 0.0 Immature Gran # (Auto) 0.03 H Absolute Nucleated RBC 0.00 Immature Gran % 0 Nucleated RBC % 0 Sodium 142 Potassium 3.8 Chloride 110 H Carbon Dioxide 21.8 Anion Gap 10 BUN 9 Creatinine 0.6 Estim Creat Clear Calc 85.0 eGFR > 60 BUN/Creatinine Ratio 15 Glucose 112 H Calculated Osmolality 282 Calcium 6.9 L Blood Type O Positive Antibody Screen NEGATIVE Crossmatch See Detail See Detail Blood Bank Wristband ID Yes Blood Bank Comment FFP Ready SENIOR BENEFITS ANALYST - A/P Assessment and plan (1) Uterine mass: Status: Acute (2) Anemia requiring transfusions: Status: Acute (3) Acute blood loss anemia: Status: Acute (4) Abnormal uterine and vaginal bleeding, unspecified: Status: Acute (5) Intramural leiomyoma of uterus: Status: Acute Assessment and plan: POD#1 1. Continue routine post operative care, significant drop in hemoglobin, will transfuse 3 units of packed RBCs and 1 unit of FFP today. 2. Transition to PO med, will DC pain pump and transition to oral meds, remove Penn catheter, remove dressing and encourage patient to shower 3. Encourage to ambulate 4. Anticipate discharge home tomorrow 5. Home care instructions reviewed Postoperative Procedures: Procedures Operation Date: 11/20/24 11:15 Actual Procedure Side Surgeon p Abdominal Hysterectomy, Bilateral Salpingectomy, Left Ovarian Cystectomy Dhaval Preston MD Time Spent With Patient Time: Total time spent is greater than 50% in coordination of care (as documented) at patient's floor/unit and/or counseling patient: Time with patient: less than 15 minutes
[2024-11-21] MEDS: DOCUSATE SOD 100 MG CAPSULE PO (09:22)
[2024-11-21] MEDS: KETOROLAC INJ 30 MG/ML VIAL IVP ×3 (13:25→23:09)
--- NOTE | 2024-11-21 13:38 | PC.NURSE ---
patient has urge to urinate. Unable to at this time. Bladder scan checked, patient has 193ml in bladder. Patient will try again later. No discomfort noted.
[2024-11-21] MEDS: guaiFENesin SYRUP 200 MG/10 ML UDC PO (15:34)
[2024-11-21] MEDS: LACTULOSE SYRUP 20 GM/30 ML UDC 10 GM PO ×2 (15:46→21:58)
[2024-11-21] MEDS: DiphenhydrAMINE INJ 50 MG/ML VIAL 25 MG IV (23:48)
[2024-11-22] VITALS: BP 160/98; PULSE 67; RESP 13; TEMP 36.7; O2SAT 96
[2024-11-22] MEDS: SODIUM CHLORIDE 0.9% 1000 ML 1,000 ML 200 ML IV ×2 (01:31→05:46)
[2024-11-22 04:00] VITALS: BP 146/93; PULSE 69; RESP 15; TEMP 36.6; O2SAT 94
[2024-11-22 05:37] LABS: Basophils % (Auto) 0 % (0-2.5); Eosinophils # (Auto) 0.1 Thou/mm3 (0.0-0.5); Eosinophils % (Auto) 1 % (0-10); Hematocrit 41.8 % (36.0-46.0); Hemoglobin 13.5 g/dL (12.0-16.0); Immature Granulocytes % (Auto) 0 % (0-0); Immature Granulocytes Auto 0.03 Thou/mm3 (0.00-0.00); Lymphocytes # (Auto) 1.5 Thou/mm3 (1.0-4.8); Lymphocytes % (Auto) 21 % (10-50); Mean Corpuscular HGB Conc 32.3 g/dl (31.0-37.0); Mean Corpuscular Hemoglobin 24.6 pg (25.0-35.0); Mean Corpuscular Volume 76 fL (80-100); Monocytes # (Auto) 0.4 Thou/mm3 (0.0-0.8); Monocytes % (Auto) 5 % (0-12); Neutrophils # (Auto) 5.4 Thou/mm3 (1.8-7.7); Neutrophils % (Auto) 73 % (37-80); Nucleated Red Blood Cell % 0 /100 WBC (0); Platelet Count 199 Thou/mm3 (140-440); RDW Standard Deviation 66.5 fL (36.4-46.3); Red Blood Count 5.48 Miln/mm3 (4.00-5.20); White Blood Count 7.4 Thou/mm3 (3.6-11.0)
[2024-11-22 08:00] VITALS: BP 145/89; PULSE 61; PULSE 68; RESP 17; TEMP 36.2; O2SAT 98
[2024-11-22 08:49] VITALS: BP 148/95; PULSE 71
[2024-11-22] MEDS: METOPROLOL TARTRATE 25 MG TABLET PO (08:49)
[2024-11-22] MEDS: PANTOPRAZOLE 40 MG TABLET PO (08:51)
[2024-11-22] MEDS: HYDROcodone/APAP 5/325 TABLET 1 TAB PO (08:51)
[2024-11-22] MEDS: DiphenhydrAMINE INJ 50 MG/ML VIAL 25 MG IV (08:52)
--- NOTE | 2024-11-22 11:03 | PD.GYNPROG ---
Documentation for date of: 11/22/24 REAL ESTATE INVESTMENT ANALYST Subjective Subjective Interval history: Patient doing well this morning. Pain is adequately controlled on the current regimen. No incisional complaints, no chest pain, shortness of breath, breathing difficulties. Ambulating, tolerating p.o., passing flatus and voiding without difficulty. Exam Vital Signs Temp Pulse Resp BP Pulse Ox O2 Del Method O2 Flow Rate 97.2 F 71 17 148/95 H 98 Room Air 2 11/22/24 08:00 11/22/24 08:49 11/22/24 08:00 11/22/24 08:49 11/22/24 08:00 11/22/24 08:00 11/21/24 19:16 Constitutional Constitutional: no acute distress Routine HEENT Exam Head: Present normocephalic and atraumatic Eye: Present EOMI and PERRL ENT: Present mucous membranes moist Routine Neck Exam Neck: Present supple and trachea midline Routine Respiratory Exam Respiratory: Present chest non-tender, lungs clear, normal breath sounds and no resp distress Routine Cardiovascular Exam Cardiovascular: Present RRR Routine Abdominal Exam Abdominal: Present soft and normoactive bowel sounds Routine Extremities Exam Extremities: Present full ROM Routine Skin Exam Skin: Present intact and dry Routine Neurological Exam Neurological: Present alert, oriented X3 and CN II-XII intact Routine Psychiatric Exam Psychiatric: Present normal affect and normal thought process Urinary Catheter Management Cath placed during this visit: no REAL ESTATE INVESTMENT ANALYST - PN: Obj Data Labs 11/22/24 04:52 11/21/24 08:10 Labs: Laboratory Results - last 24 hr 11/18/24 11/21/24 11/22/24 11:57 08:10 04:52 WBC 7.4 RBC 5.48 H Hgb 13.5 D Hct 41.8 D MCV 76 L MCH 24.6 L MCHC 32.3 RDW Std Deviation 66.5 H Plt Count 199 D Neut % (Auto) 73 Lymph % (Auto) 21 [place]tinger % (Auto) 5 Eos % (Auto) 1 Baso % (Auto) 0 Neut # (Auto) 5.4 Lymph # (Auto) 1.5 [place] # (Auto) 0.4 Eos # (Auto) 0.1 Baso # (Auto) 0.0 Immature Gran # (Auto) 0.03 H Absolute Nucleated RBC 0.00 Immature Gran % 0 Nucleated RBC % 0 Blood Type O Positive Antibody Screen NEGATIVE Crossmatch See Detail See Detail Blood Bank Wristband ID Yes Blood Bank Comment FFP Ready REAL ESTATE INVESTMENT ANALYST - A/P Assessment and plan (1) Uterine mass: Status: Acute (2) Anemia requiring transfusions: Status: Acute (3) Acute blood loss anemia: Status: Acute (4) Abnormal uterine and vaginal bleeding, unspecified: Status: Acute (5) Intramural leiomyoma of uterus: Status: Acute (6) S/P abdominal hysterectomy: Status: Acute Assessment and plan: POD#2 1. Continue routine post operative care 2. Transition to PO meds. 3. Encourage to ambulate 4. Anticipate discharge home today. 5. Home care instructions reviewed Postoperative Procedures: Procedures Operation Date: 11/20/24 11:15 Actual Procedure Side Surgeon p Abdominal Hysterectomy, Bilateral Salpingectomy, Left Ovarian Cystectomy Dhaval Preston MD Time Spent With Patient Time: Total time spent is greater than 50% in coordination of care (as documented) at patient's floor/unit and/or counseling patient: Time with patient: less than 15 minutes
--- NOTE | 2024-11-22 11:05 | PD.GYNDS ---
Planned Discharge Date 11/22/24 DS: Providers Provider Date of admission: 11/18/24 17:32 Primary care physician: Austyn Miramontes PA-C Admitting Provider: Dhaval Preston MD Attending Provider on Admission: Dhaval Preston MD Attending Provider on DC: Dhaval Preston MD Discharging Provider: Dhaval Preston MD DS: Diagnosis Discharge Diagnosis (1) S/P abdominal hysterectomy: Status: Acute (2) Other acute postprocedural pain: Status: Acute (3) Uterine mass: Status: Acute (4) Anemia requiring transfusions: Status: Acute Problem List Completed Was Problem List Reviewed/Reconciled?: Yes Hospital Course Hospital Course Hospital course: The patient presented to the emergency department on 11/18/2024 with heavy vaginal bleeding and flu-like symptoms. She had a known history of abnormal uterine bleeding secondary to a large uterine fibroid and had previously been scheduled for surgery, which was delayed. Laboratory evaluation revealed critical anemia with a hemoglobin level of 5.8 g/dL. Pelvic ultrasound demonstrated an enlarged uterus measuring 13.8 cm with a large fundal fibroid measuring 12.3 ? 10 ? 12 cm, along with a complex left ovarian cyst measuring 4.2 ? 3.7 ? 2.8 cm. The patient was transfused with 3 units of packed red blood cells and 1 unit of fresh frozen plasma. After detailed counseling and discussion of options, she elected to proceed with surgical management. On 11/20/2024, she underwent an exploratory laparotomy, total abdominal hysterectomy with bilateral salpingectomy, and left ovarian cystectomy under general anesthesia. Intraoperatively, significant bladder adhesions were encountered and carefully lysed. The surgery proceeded without complications, with an estimated blood loss of 100 mL. Postoperatively, the patient remained stable, continued to recover appropriately, and her hemoglobin was noted to be 13.6 g/dL on 11/22/2024. She demonstrated good pain control, was tolerating diet, and her surgical site was healing well. She was deemed stable for discharge with plans for outpatient follow-up in 14 days for staple removal. Status at Discharge Functional status at discharge: independent ambulation Overall status at discharge: patient is progressing back to baseline Time Spent with Patient Time attestation: Total time spent providing and/or coordinating discharge services: Time spent: Less than 30 minutes Exam - FINANCIAL PLANNING ANALYST Vital Signs Temp Pulse Resp BP Pulse Ox O2 Del Method O2 Flow Rate 97.2 F 71 17 148/95 H 98 Room Air 2 11/22/24 08:00 11/22/24 08:49 11/22/24 08:00 11/22/24 08:49 11/22/24 08:00 11/22/24 08:00 11/21/24 19:16 Discharge Plan Plan Patient Disposition: HOME (Self Care) Disposition Comment: See Dr Preston after 14 days for staple removal Patient condition on transfer: Stable Prescriptions/Referrals Prescriptions/Med Rec: New hydrocodone-acetaminophen 5-325 mg tablet 1 tab PO Q6H MDD 4 PRN (Reason: pain) 7 Days Qty: 28 0RF docusate sodium [Stool Softener] 100 mg capsule 100 mg PO QDAY 30 Days Qty: 30 0RF ibuprofen 600 mg tablet 600 mg PO Q6H MDD 4 PRN (Reason: fever or pain) 10 Days Qty: 40 0RF Continued metoprolol tartrate 25 mg Tablet 25 mg PO QDAY Referrals: Austyn Miramontes PA-C [Primary Care Provider] - Dhaval Preston MD [Physician] - Patient/Caregiver Discharge Instructions Meds to Beds: Yes Discharge Activity: activity as tolerated Education Materials: Abdominal Hysterectomy Dc Print Language: Faroese Stand Alone Forms: Allyssa Award Info., Patient Portal Info Letter, MICHELET from Surgery
[2024-11-22 12:00] VITALS: BP 142/90; PULSE 64; PULSE 65; RESP 17; TEMP 36.1; O2SAT 96
== END 2024-11-22 14:18 | disposition home or self-care (01) | DRG 519 ==
LOC: SERX 12:14 → SERHOLD 17:34 → S3SX 20:18
PROVIDERS: Nurse Practitioner Family; Admitting Provider Obstetrics & Gynecology; Emergency Provider Emergency Medicine; PCP Physician Assistant Medical; Visit Provider Obstetrics & Gynecology
PROC: 0UB10ZZ Excision of Left Ovary, Open Approach (ICD-10-PCS; CPT 49000; principal; 2024-11-20 11:00)
DX: D25.1 Intramural leiomyoma of uterus (principal); I10 Essential (primary) hypertension; N92.0 Excessive and frequent menstruation with regular cycle; D62 Acute posthemorrhagic anemia; N83.292 Other ovarian cyst, left side; G89.18 Other acute postprocedural pain; D50.9 Iron deficiency anemia, unspecified
CPT/HCPCS: 36415; 36430; 71046; 72196; 76856; 80048; 80053; 82378; 83001; 83036; 85025; 85384; 85610; 85730; 86304; 86850; 86900; 86901; 86923; 86927; 87400; 87811; 96374; 99285; A4217; A4649; A9579; J0131; J0690; J1100; J1171; J1200; J1885; J2270; J2405; J2550; J2704; J2710; J3010; J3490; J7030; P9016; P9060; A9270; J1596

== ENCOUNTER 2024-11-24 14:59 | Emergency (ER) | payer MEDICAID, SELFPAY ==
[2024-11-24 15:11] VITALS: BP 186/79; BP 192/95; PULSE 60; RESP 18; TEMP 37; O2SAT 97
[2024-11-24 15:42] VITALS: BMI 24.0
[2024-11-24 16:19] VITALS: BP 180/92; PULSE 60; RESP 15; TEMP 36.9; O2SAT 96
--- NOTE | 2024-11-24 16:22 | EDNOTE_ITS ---
ED General RME/HPI General Chief complaint: General Adult/Misc Complain Stated complaint: Ab pain s/p hysterectomy Time Seen by Provider: 11/24/24 15:48 Arrival date/time: 11/24/24 14:59 RME / HPI RME / HPI narrative: 49-year-old female who presents to the ED with complaint of worsening cough and abdominal pain. Since the surgery her cough is become worse and due to the significant coughing, her incision has been bleeding. She went to [facility] today and during the office visit she coughed and blood spurted from the incision. She is bringing up white bubbly sputum which she describes as salty. She denies fever or chills, ear pain or sore throat. She is requesting antibiotics for her cough. Related Data Home Medications ?Medication ?Instructions ?Recorded ?Confirmed metoprolol tartrate 25 mg tablet 25 mg PO QDAY 0 11/19/24 Previous Rx's ?Medication ?Instructions ?Recorded docusate sodium 100 mg capsule 100 mg PO QDAY 30 days #30 caps 11/21/24 (Stool Softener) hydrocodone 5 mg-acetaminophen 325 1 tab PO Q6H PRN pa in 7 days #28 11/21/24 mg tablet tabs ibuprofen 600 mg tablet 600 mg PO Q6H PRN fever or p ain 10 11/21/24 days #40 tabs albuterol sulfate 90 mcg/actuation 2 puff inhalation Q 4H PRN 11/24/24 aerosol inhaler shortness of breath or wheez ing #8.5 grams azithromycin 250 mg tablet 250 mg PO QDAY Pneumonia 4 days #4 11/24/24 (Zithromax) tabs benzonatate 100 mg capsule 200 mg (2 x 100 mg) PO TID PRN 11/24/24 cough #30 caps Allergies Allergy/AdvReac Type Severity Reaction Status Date / Time ketorolac (From Toradol) Allergy Mild Swelling Verified 11/24/24 15:03 of face lactulose Allergy Mild Swelling Verified 11/24/24 15:03 of face avocado Allergy Verified 11/24/24 15:03 Review of Systems Review of Systems Systems Reviewed: All systems reviewed, normal except as documented Past Medical History Past Medical History NEUROLOGIC: Negative Neurological Disorders or Seizures CARDIAC: Positive Cardiac Disorders and Hypertension; Negative Congestive Heart Failure RESPIRATORY: Positive Asthma; Negative Chronic Obstructive Pulmonary Disease (COPD) GASTROINTESTINAL: Negative Gastrointestinal Disorders GENITOURINARY: Negative Genitourinary Disorders or Renal Disease MUSCULOSKELETAL: Positive Musculoskeletal Disorders ENDOCRINE: Negative Diabetes Mellitus Type 1 or Diabetes Mellitus Type 2 HEMATOLOGIC: Positive Blood Disorders and Anemia; Negative Sickle Cell Disease PSYCHO/SOCIAL: Positive Anxiety OTHER HISTORY: Positive Blood Transfusions; Negative Blood Transfusion Reaction, Anesthesia Reactions (only spinal), Chemotherapy or Cancer Surgical History SURGICAL: Positive Abdominal Surgery, Hysterectomy and Section Social History SMOKING STATUS: Never smoker SECOND HAND EXPOSURE: Yes ( smokes) ED Exam Narrative Physical exam: Alert and oriented, gil 49-year-old female, mild acute distress. Lungs are diminished at the bases, regular rate and rhythm without murmurs, bowel sounds are present, abdomen is soft with mild right lower quadrant and left lower quadrant with pelvic tenderness. Positive rebound and guarding noted. Surgical incision appears to be healing well without signs or symptoms of infection. There is a minimum?mild amount of bloody drainage noted to the lower portion of the incision. Course Course Course Narrative: 49-year-old female who presents to the ED with complaint of worsening cough and abdominal pain. Since the surgery her cough is become worse and due to the significant coughing, her incision has been bleeding. She went to [facility] today and during the office visit she coughed and blood spurted from the incision. She is bringing up white bubbly sputum which she describes as salty. She denies fever or chills, ear pain or sore throat. She is requesting antibiotics for her cough. Alert and oriented, gil 49-year-old female, mild acute distress. Lungs are diminished at the bases, regular rate and rhythm without murmurs, bowel sounds are present, abdomen is soft with mild right lower quadrant and left lower quadr ant with pelvic tenderness. Positive rebound and guarding noted. Surgical incision appears to be healing well without signs or symptoms of infection. There is a minimum?mild amount of bloody drainage noted to the lower portion of the incision. Vital signs reveal an initial blood pressure of 186/79, pulse 60, respirations 18 nonlabored, temperature 98.6, O2 sat 97% on room air. CBC reveals normal white count of 6.3, normal H&H and normal platelets. Coags are normal. Chemistry panel reveals sodium 146, magnesium 2.1, AST 35, ALT 76, troponin less than 0.020, BNP 269, lactic normal at 0.9, procalcitonin normal at 0.05. XR Chest: FINDINGS: Early heart failure vs Pneumonia. Mild enlargement cardiac contour. Prominent vascular congestion. Small bilateral pleural effusions. Fluid in the fissures on the lateral view. IMPRESSION: Early heart failure vs Pneumonia. CT Abd/Pel: IMPRESSION: Mild heart failure pattern vs Pneumonia. Recommend gallbladder sonography to exclude acute cholecystitis. Large incisional hernia defect containing transverse colon, no definite incarcerated bowel. GB US: IMPRESSION: Negative for cholelithiasis, negative for cholecystitis. Quality Measures Current suspected stage: ruled out Reason for ruling out sepsis: No tachycardia/tachypnea. No fever, normal WBC's, normal lactic/Pro-Calc Possible source: pulmonary Blood cultures ordered: yes Antibiotic ordered: Yes Pertinent labs: 11/24/24 16:40 Lactic Acid 0.9 mMol/L (0.4-2.0) Procalcitonin 0.05 ng/ml (0.0-0.49) sepsis Orders Category Date Time Status Bedside COVID-19 Antigen Test NOW Care 11/24/24 18:01 Active Bedside Influenza A&B Antigen Test NOW Care 11/24/24 18:[address] Screening NOW Care 11/24/24 16:[address] Screening X1 Care 11/24/24 16:[address] abdomen pelvis w con Stat Exams 11/24/24 16:32 Completed US gall bladder Stat Exams 11/24/24 20:46 Completed XR chest 2V Stat Exams 11/24/24 16:26 Completed BNP [B-Type Natriuretic Peptide] Stat Lab 11/24/24 16:40 Completed Blood Culture (Lab) Stat Lab 11/24/24 16:40 Received CBC Stat Lab 11/24/24 16:40 Completed CMP [Comprehensive Metabolic Panel] Stat Lab 11/24/24 16:40 Completed Lactic Acid [Lactate (Lactic Acid)] Stat Lab 11/24/24 16:40 Completed Magnesium Stat Lab 11/24/24 16:40 Completed Partial Thromboplastin Time Stat Lab 11/24/24 16:40 Completed Procalcitonin Stat Lab 11/24/24 16:40 Completed Prothrombin Time with INR Stat Lab 11/24/24 16:40 Completed Troponin I Stat Lab 11/24/24 16:40 Completed Urinalysis Stat Lab 11/24/24 17:43 Completed Albuterol/Ipratr Rt Lisa [Duoneb Rt Lisa] Med 11/24/24 16:32 Discontinued 3 ml INH X1 ONE Azithromycin Inj [Zithromax Inj] 500 mg Med 11/24/24 20:47 Discontinued Sodium Chloride 0.9% 250 ml [Ns] 250 ml IV X1 cefTRIAXone/D5w 1gm IV premix [Rocephin/D5w 1gm IV Med 11/24/24 20:47 Discontinued premix] 1 gm in 50 ml IV X1 Vital Signs Vital signs: Vital Signs Temperature 98.6 F 11/24/24 15:11 Pulse Rate 60 11/24/24 15:11 Respiratory Rate 18 11/24/24 15:11 Blood Pressure 186/79 H 11/24/24 15:11 Pulse Oximetry (%) 97 11/24/24 15:11 Oxygen Delivery Method Room Air 11/24/24 15:11 Discharge Plan Plan Patient Disposition: HOME (Self Care) Discharge Disposition comment: Stable Prescriptions/Referrals Prescriptions/Med Rec: New azithromycin [Zithromax] 250 mg tablet 250 mg PO QDAY 4 Days Qty: 4 0RF Rx Instructions: start on day 2 of therapy benzonatate 100 mg capsule 200 mg PO TID PRN (Reason: cough) Qty: 30 0RF albuterol sulfate 90 mcg/actuation HFA aerosol inhaler 2 puff inhalation Q4H PRN (Reason: shortness of breath or wheezing) Qty: 8.5 0RF No Action metoprolol tartrate 25 mg Tablet 25 mg PO QDAY hydrocodone-acetaminophen 5-325 mg tablet 1 tab PO Q6H MDD 4 PRN (Reason: pain) 7 Days Qty: 28 0RF docusate sodium [Stool Softener] 100 mg capsule 100 mg PO QDAY 30 Days Qty: 30 0RF ibuprofen 600 mg tablet 600 mg PO Q6H MDD 4 PRN (Reason: fever or pain) 10 Days Qty: 40 0RF Referrals: No Primary/Family,Physician [Primary Care Provider] - In 1 week Problem List Clinical Impression: Pneumonia, S/P abdominal hysterectomy Patient/Caregiver Discharge Instructions Education Materials: After Abdominal Hysterectomy ..., ED Pneumonia (Adult) Additional Instructions: Follow-up with your primary care physician and Dr. Preston in 24 to 48 hours. Return to the ED for any new or worsening symptoms. 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 Marley [facility] Narrative MDM hospital course: 49-year-old female who presents to the ED with complaint of worsening cough and abdominal pain. Since the surgery her cough is become worse and due to the significant coughing, her incision has been bleeding. She went to [facility] today and during the office visit she coughed and blood spurted from the incision. She is bringing up white bubbly sputum which she describes as salty. She denies fever or chills, ear pain or sore throat. She is requesting antibiotics for her cough. Alert and oriented, pleasant 49-year-old female, mild acute distress. Lungs are diminished at the bases, regular rate and rhythm without murmurs, bowel sounds are present, abdomen is soft with mild right lower quadrant and left lower quadrant with pelvic tenderness. Positive rebound and guarding noted. Surgical incision appears to be healing well without signs or symptoms of infection. There is a minimum?mild amount of bloody drainage noted to the lower portion of the incision. Vital signs reveal an initial blood pressure of 186/79, pulse 60, respirations 18 nonlabored, temperature 98.6, O2 sat 97% on room air. CBC reveals normal white count of 6.3, normal H&H and normal platelets. Coags are normal. Chemistry panel reveals sodium 146, magnesium 2.1, AST 35, ALT 76, troponin less than 0.020, BNP 269, lactic normal at 0.9, procalcitonin normal at 0.05. XR Chest: FINDINGS: Early heart failure vs Pneumonia. Mild enlargement cardiac contour. Prominent vascular congestion. Small bilateral pleural effusions. Fluid in the fissures on the lateral view. IMPRESSION: Early heart failure vs Pneumonia. CT Abd/Pel: IMPRESSION: Mild heart failure pattern vs Pneumonia. Recommend gallbladder sonography to exclude acute cholecystitis. Large incisional hernia defect containing transverse colon, no definite incarcerated bowel. GB US: IMPRESSION: Negative for cholelithiasis, negative for cholecystitis. Clinical Information Provided by patient other: Dr. Wong. Medical Records Reviewed [facility] Meds/Rx Considered, not Ordered None Labs/Rad/Tests considered, not Ordered None Chronic Illness/Social Conditions which may negatively complicate care or outcome(s)-explain: None or not applicable EKG EKG not done Lab Interpretation Lab(s) interpretation(s): CBC reveals normal white count of 6.3, normal H&H and normal platelets. Coags are normal. Chemistry panel reveals sodium 146, magnesium 2.1, AST 35, ALT 76, troponin less than 0.020, BNP 269, lactic normal at 0.9, procalcitonin normal at 0.05. Imaging Imaging interpretation: other (Per Radiologist.) Radiology reports / interpretation(s): XR Chest: FINDINGS: Early heart failure vs Pneumonia. Mild enlargement cardiac contour. Prominent vascular congestion. Small bilateral pleural effusions. Fluid in the fissures on the lateral view. IMPRESSION: Early heart failure vs Pneumonia. CT Abd/Pel: Findings: Moderate right and mild left pleural fluid with pneumonia versus edema at the lung bases and mild enlargement cardiac contour No visualized liver or splenic lesion Gallbladder wall appears thickened and edematous No pancreatic mass No renal or ureteral calculi, no hydronephrosis Appendix is partially visualized and does not appear enlarged Incisional hernia defect axial image 133, 3.7 cm in transverse dimension containing transverse colon, no definite incarcerated bowel No pelvic hematoma Bladder intact IMPRESSION: Mild heart failure pattern Recommend gallbladder sonography to exclude acute cholecystitis Large incisional hernia defect containing transverse colon, no definite incarcerated bowel GB US: Findings: Negative for gallstones No gallbladder wall edema Normal common bile duct 0.4 cm Pancreatic head 2.5 cm Liver 12.4 cm no focal liver lesions Normal hepatopedal portal venous flow Patent IVC Partial visualization right pleural fluid IMPRESSION: Negative for cholelithiasis, negative for cholecystitis Medication Administration(s) Medication Administration History Discontinued Medications Albuterol/Ipratropium (Albuterol/Ipratropium (Duoneb) Rt Lisa 3 Ml Nebu) 3 ml INH X1 ONE Stop: 11/24/24 16:33 Last Admin: 11/24/24 17:51 Dose: 3 ml Documented By: RONNELL Ceftriaxone Sodium/Dextrose (Rocephin/D5w 1gm Iv Premix) 1 gm in 50 mls @ 100 mls/hr IV X1 ONE Stop: 11/24/24 21:16 Last Infusion: 11/24/24 21:47 Dose: Infused Documented By: Admin: 11/24/24 21:04 Dose: 100 mls/hr Documented By: KAITLYNN Azithromycin 500 mg/ Sodium (Chloride) 250 mls @ 250 mls/hr IV X1 ONE Stop: 11/24/24 21:46 Last Infusion: 11/24/24 22:27 Dose: Infused Documented By: Admin: 11/24/24 21:27 Dose: 250 mls/hr Documented By: KAITLYNN DuoNeb, Ceftriaxone, and Azithromycin. Diagnosis Differential diagnosis: Post surgical abscess/complication, Seroma, Pneumonia, CHF, Influenza Differential dx and/or dx ruled out: Postsurgical abscess/complication, seroma, influenza Most likely dx, and/or detailed dx discussion: Pneumonia versus mild CHF Dispositon Disposition: Discharge Home
--- NOTE | 2024-11-24 16:26 | XR_ITS ---
Examination: AP lateral chest 2 views TECHNIQUE: Portable upright AP lateral chest 2 views Date and time: November 24, 2024 7004 hours Comparison November 18, 2024 INDICATIONS: Coughing shortness of breath one week. FINDINGS: Early heart failure Mild enlargement cardiac contour Prominent vascular congestion Small bilateral pleural effusions Fluid in the fissures on the lateral view IMPRESSION: Early heart failure
--- NOTE | 2024-11-24 16:32 | XR_ITS ---
Examination: CT abdomen with intravenous contrast CT pelvis with intravenous contrast 2-D coronal reconstructions 2-D sagittal reconstructions Date and time of exam:November 24, 2024 at 1832 hours INDICATIONS: Status post hysterectomy 1 week ago bleeding from the incision site. CTDI: vol (mGy) 6.18 DLP: (mGycm) 298 Technique: Multiple axial sections of the abdomen and pelvis have been obtained. 64 slice high-resolution scanner used. 3 mm axial sections have been obtained, post intravenous injection 60 cc [id number] 2-D sagittal, coronal reconstructions obtained. Low dose protocols were performed. One or more of the following dose reduction techniques were used; automated exposure control, adjustment of the mA and/or KV according to patient size, use of iterative reconstruction technique. Findings: Moderate right and mild left pleural fluid with pneumonia versus edema at the lung bases and mild enlargement cardiac contour No visualized liver or splenic lesion Gallbladder wall appears thickened and edematous No pancreatic mass No renal or ureteral calculi, no hydronephrosis Appendix is partially visualized and does not appear enlarged Incisional hernia defect axial image 133, 3.7 cm in transverse dimension containing transverse colon, no definite incarcerated bowel No pelvic hematoma Bladder intact IMPRESSION: Mild heart failure pattern Recommend gallbladder sonography to exclude acute cholecystitis Large incisional hernia defect containing transverse colon, no definite incarcerated bowel
[2024-11-24 16:53] LABS: Lactate (Lactic Acid) 0.9 mMol/L (0.4-2.0)
[2024-11-24 16:55] LABS: Basophils % (Auto) 1 % (0-2.5); Eosinophils # (Auto) 0.2 Thou/mm3 (0.0-0.5); Eosinophils % (Auto) 3 % (0-10); Hematocrit 44.8 % (36.0-46.0); Immature Granulocytes % (Auto) 0 % (0-0); Lymphocytes # (Auto) 0.9 Thou/mm3 (1.0-4.8); Lymphocytes % (Auto) 14 % (10-50); Mean Corpuscular HGB Conc 31.3 g/dl (31.0-37.0); Mean Corpuscular Hemoglobin 24.3 pg (25.0-35.0); Mean Corpuscular Volume 78 fL (80-100); Monocytes # (Auto) 0.3 Thou/mm3 (0.0-0.8); Monocytes % (Auto) 5 % (0-12); Neutrophils # (Auto) 4.9 Thou/mm3 (1.8-7.7); Neutrophils % (Auto) 77 % (37-80); Nucleated Red Blood Cell % 0 /100 WBC (0); Platelet Count 202 Thou/mm3 (140-440); RDW Standard Deviation 67.9 fL (36.4-46.3); Red Blood Count 5.77 Miln/mm3 (4.00-5.20); White Blood Count 6.3 Thou/mm3 (3.6-11.0)
[2024-11-24 17:11] LABS: Partial Thromboplastin Time 24.7 Seconds (22.0-36.0); Prothrombin Time 11.2 Seconds (9.0-12.2)
[2024-11-24 17:21] LABS: Alanine Aminotransferase 76 U/L (10-49); Albumin, Serum 3.8 gm/dL (3.5-5.0); Albumin/Globulin Ratio 1.5 (1.2-2.2); Alkaline Phosphatase 81 U/L (46-116); Anion Gap 13 (7-16); Aspartate Amino Transferase 35 U/L (0-34); BUN/Creatinine Ratio 8 Ratio (12-20); Bilirubin,Total 1.2 mg/dL (0.3-1.2); Blood Urea Nitrogen < 5 mg/dL (9-23); Calcium 8.2 mg/dL (8.3-10.6); Calcium (Corrected) 8.4 mg/dL (8.5-10.1); Carbon Dioxide 25.7 mMol/L (20.0-31.0); Chloride 107 mMol/L (98-107); Creatinine (Component) 0.6 mg/dL (0.6-1.3); Estimated Creatinine Clearance 85.1 mL/min (>60); Globulin 2.5 gm/dL (2.3-3.5); Glucose 89 mg/dL (74-106); Magnesium 2.1 mg/dL (1.6-2.6); Osmolality,Calculated 286 (275-295); Potassium 3.5 mMol/L (3.4-5.1); Procalcitonin 0.05 ng/ml (0.0-0.49); Sodium 146 mMol/L (136-145); Total Protein 6.3 gm/dL (5.7-8.2); eGFR > 60 See Note
[2024-11-24] MEDS: ALBUTEROL/IPRATROPIUM (Duoneb) RT SOL 3 ML NEBU INH (17:51)
[2024-11-24 17:52] VITALS: PULSE 55; RESP 16; O2SAT 100
[2024-11-24 18:11] LABS: Collection Type, Urine Clean Catch; WBC,Urine 0 /hpf (0-5)
[2024-11-24 18:19] LABS: Bilirubin,Urine Negative (Negative); Blood,Urine Negative (Negative); Clarity,Urine Clear (Clear/Hazy); Color,Urine Lt-Yellow (Lt Yel-Yel); Glucose, Urine Negative (Negative); Ketones,Urine 1+ (Negative); Leukocyte Esterase,Urine Negative (Negative); Nitrite,Urine Negative (Negative); Protein,Urine Negative (Neg - Trace); RBC,Urine < 1 /hpf (0-3); Specific Gravity,Urine 1.009 (1.001-1.035); Squamous Epithelial Cell,Urine 4 /hpf (0-5); Urobilinogen,Urine Negative mg/dL (0.0-1.0)
[2024-11-24 19:15] VITALS: BP 156/85; PULSE 94; RESP 16; TEMP 36.8; O2SAT 97
--- NOTE | 2024-11-24 20:46 | XR_ITS ---
Examination: Abdomen sonogram, Limited Date and time of exam: November 24, 2024, 2102 hours INDICATIONS: CT examination November 24, 2024 large incisional hernia defect containing transverse colon Technique: Real-time bar scale transabdominal sonographic images of the upper abdomen obtained. Findings: Negative for gallstones No gallbladder wall edema Normal common bile duct 0.4 cm Pancreatic head 2.5 cm Liver 12.4 cm no focal liver lesions Normal hepatopedal portal venous flow Patent IVC Partial visualization right pleural fluid IMPRESSION: Negative for cholelithiasis, negative for cholecystitis
[2024-11-24] MEDS: cefTRIAXone/D5w 1gm IV premix 1 GM/50 ML BAG IV (21:04)
[2024-11-24 21:15] LABS: Troponin I < 0.020 ng/mL (0.0-0.045)
[2024-11-24 21:27] LABS: B-Type Natriuretic Peptide 269 pg/mL (0-100)
[2024-11-24] MEDS: AZITHROMYCIN INJ 500 MG in SODIUM CHLORIDE 0.9% 250 ML 250 ML 250 MG IV (21:27)
[2024-11-25 00:28] VITALS: BP 169/89; PULSE 67; RESP 16; TEMP 36.8; O2SAT 95
== END 2024-11-25 00:40 | disposition home or self-care (01) ==
PROVIDERS: Physician Assistant; Emergency Provider Emergency Medicine
DX: J18.9 Pneumonia, unspecified organism (principal); Z90.710 Acquired absence of both cervix and uterus; K43.2 Incisional hernia without obstruction or gangrene
CPT/HCPCS: 36415; 71046; 74177; 76705; 80053; 81001; 83605; 83735; 83880; 84145; 84484; 85025; 85610; 85730; 87040; 87400; 87502; 87811; 94640; 96365; 96367; 99285; A4649; A9270; J0456; J0696; J7050; Q9967

== ENCOUNTER 2024-11-26 08:56 | Outpatient (AMB) | payer MEDICAID, SELFPAY ==
[2024-11-26 09:09] VITALS: BP 155/98; PULSE 86; RESP 18; TEMP 36.2; O2SAT 98; BMI 21.4
--- NOTE | 2024-11-26 09:10 | GYNCLNT_ITS ---
Vital Signs 11/26/24 09:09 11/26/24 09:13 Height 1.5 m Height Method Stated Weight 48.308 kg Weight Measurement Method Standing Scale BMI 21.4 BP 155/98 H 155/98 H Blood Pressure Source Automatic Cuff Blood Pressure Location Left Upper Arm Position Sitting Respiration 18 18 Pulse 86 86 Pulse Source Monitor Temp 97.2 F 97.2 F Temp Source Oral Pulse Oximetry (%) 98 98 Oxygen Delivery Method Room Air Allergies/Home Meds Allergies & Medications Allergies ketorolac (From Toradol) Allergy (Mild, Verified 11/30/24 08:43) Swelling of face lactulose Allergy (Mild, Verified 11/30/24 08:43) Swelling of face avocado Allergy (Verified 11/30/24 08:43) Medication Reconciliation metoprolol tartrate 25 mg tablet 25 mg PO QDAY 04/28/20 [History Confirmed 11/30/24] docusate sodium 100 mg capsule (Stool Softener) 100 mg PO QDAY 30 days #30 caps 11/21/24 [Rx Confirmed 11/30/24] albuterol sulfate 90 mcg/actuation aerosol inhaler 2 puff inhalation Q4H PRN shortness of breath or wheezing #8.5 grams 11/24/24 [Rx Confirmed 11/30/24] benzonatate 100 mg capsule 200 mg (2 x 100 mg) PO TID PRN cough #30 caps 11/24/24 [Rx Confirmed 11/30/24] amoxicillin 875 mg-potassium clavulanate 125 mg tablet 1 tab PO BID 7 days #14 tabs 11/26/24 [Rx Confirmed 11/30/24] Intake Visit Data Collection New Patient or Established: Established Patient (seen at [facility] within 3 years) Reason for Visit:: ER FOLLOW UP Seen by Clinical Staff ONLY (RN/MA): No Medical Practice Manager Required: No Do You Feel Safe at Home: Yes Authorities Contacted: N/A PCP or OBGYN visit in last 3 months: Yes Date of Last PCP or OBGYN visit: 11/25/24 Hx Now: No Are you currently on any form of Control: No Pain Present Currently: No Pain Scale Used: Allred-Hazel/Numerical Pain scale:: 0 Smoking Status Smoking Status: Never smoker Research 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 1. Little interest or pleasure in doing things: not at all 2. Feeling down, depressed, or hopeless: not at all Total score: 0 PHQ-9 3. Trouble falling or staying asleep, or sleeping too much: Not at all 4. Feeling tired or having little energy: Not at all 5. Poor appetite or overeating: Not at all 6. Feeling bad about yourself - or that you are a failure or have let yourself or your family down: Not at all 7. Trouble concentrating on things, such as reading the newspaper or watching television: Not at all 8. Moving or speaking so slowly that other people could have noticed? - Or the opposite - being so fidgety or restless that you have been moving around a lot more than usual: not at all 9. Thoughts that you would be better off or of hurting yourself in some way: Not at all Total score: 0 If you checked off any problems, how difficult have these problems made it for you to do your work, take care of things at home, or get along with other people?: not difficult at all Source: Developed by Drs. Celestine Correa, Ewa Villegas, Shaggy Cortes and colleagues, with an educational roger from [employer]. Depression screen completed yes Social History Living Situation History Marital Status: Lives With: Family Housing: House Housing Other:: Pt resides with and dtr Tobacco History Smoking Status: Never smoker Second Hand Smoke Exposure: Yes ( smokes) Alcohol History Alcohol Intake: Former Alcohol Intake Frequency: holidays/special occasions only Domestic Abuse History Do You Feel Safe at Home: Yes History of Present Illness HPI Narrative Presents 5 days status post laparotomy and total abdominal hysterectomy with complaints of persistent cough and incisional complications. She reports an intractable cough following an episode of influenza, severe enough to cause a small piece of fatty tissue to protrude through her surgical incision. The cough has been non-stop and triggers her stomach. Previously prescribed cough syrup and Benzonatate have not provided adequate relief. Patient is concerned about the protrusion from her incision, initially worried it might be intestinal tissue, but was reassured it was subcutaneous fat. She denies any pain associated with this protrusion. She reports adhering to prescribed medications, including metoprolol for blood pressure management. Blood pressure occasionally elevates, though not daily. She mentions being prescribed calcium supplements due to low calcium levels, attr ibuted to recent blood transfusions. Patient has been modifying her bathing routine to avoid getting the incision site wet. She reports a recent hospitalization where she was diagnosed with pneumonia. Patient denies any history of heart problems. Exam General General Appearance: alert, in no apparent distress and healthy appearing Head Head exam: atraumatic Neck Neck exam: Present normal inspection and trachea midline Chest Chest inspection: Present normal inspection and symmetric chest wall rise Abdominal Abdominal exam: Present other (Physical Examination: - Abdomen: Small piece of fatty tissue protruded through incision. Fat tissue packed back inside. Incision sealed using Steri-Strips in 2 layers) External exam: Present normal external exam; Absent tenderness Neuro Neurological exam: Present oriented X3 Psych Psychiatric exam: Present normal affect and normal mood Office Procedures OB Clinic LOC & Office Proc's Nursing/Assessment Patient Status: Established Patient OB Clinic Nursing Assessment: Medication Reconciliation, Update PMH in EMR and Vital Signs OB Clinic Coordination of Care: Consent,records obtained, informed consent, Education Simp Pt/Fam, Lab and Imaging orders, Results/Orders obtained and Staff clarify orders Established Patient Charge Established Patient Point Assignment: 80 Established Patient Point Charge: EP Level 3 (80-115) Assessment & Plan Diagnosis / Problem List (1) Pneumonia: Status: Acute Qualifiers: Laterality: bilateral Lung location: unspecified part of lung Pneumon ia type: due to unspecified organism Qualified Code(s): J18.9 - Pneumonia, unspecified organism (2) Asthma: Status: Acute Qualifiers: Asthma complication type: with acute exacerbation Asthma persistence: unspecified Asthma severity: moderate Qualified Code(s): J45.901 - Unspecified asthma with (acute) exacerbation (3) S/P abdominal hysterectomy: Status: Acute (4) Other acute postprocedural pain: Status: Acute (5) Wound dehiscence: Status: Acute Plan Post-operative Wound Dehiscence with Fat Protrusion: - Small piece of fatty tissue protruded through incision due to intractable coug h. - Likely subcutaneous fat rather than intra-abdominal contents. - Protrusion attributed to increased intra-abdominal pressure from coughing. Plan: - Fatty tissue packed back inside and incision sealed using Steri-Strips in 2 layers. - Avoid applying bandages; wear abdominal binder over sealed incision. - Follow-up appointment scheduled for Friday for wound check. - Patient instructed on showering technique: tie towel around incision area to absorb water. - Provided extra pads and tape for home use if needed. Persistent Cough: - Cough following recent influenza episode. - Current medications include cough syrup and Tessalon (benzonatate). - Cough severe enough to cause wound dehiscence and trigger stomach discomfort. Plan: - Prescribe prednisone to rapidly reduce cough. - Continue current cough medications (syrup and benzonatate). - Instruct patient to start prednisone immediately. - Request patient to provide list of current medications for review. Possible Pneumonia: - Diagnosed with pneumonia during recent hospital visit. - Currently on antibiotic therapy, specific antibiotic name unknown. Plan: - Continue current antibiotic therapy (patient to confirm name of antibiotic). - Monitor for improvement of respiratory symptoms. Hypertension: - Patient reports intermittent elevated blood pressure. - Currently taking metoprolol for management. Plan: - Continue metoprolol as prescribed for blood pressure management. Hypocalcemia: - Patient reports very low calcium levels, possibly secondary to recent blood transfusions. Plan: - Continue calcium supplementation as prescribed (patient to confirm details).
[2024-11-26 09:13] VITALS: BP 155/98; PULSE 86; RESP 18; TEMP 36.2; O2SAT 98
== END 2024-11-26 13:14 | disposition home or self-care (01) ==
LOC: HODSOBC 08:56
PROVIDERS: Supervising Provider Obstetrics & Gynecology; Visit Provider Obstetrics & Gynecology
DX: T81.31XA Disruption of external operation (surgical) wound, not elsewhere classified, initial encounter (principal); G89.18 Other acute postprocedural pain; J18.9 Pneumonia, unspecified organism; J11.00 Influenza due to unidentified influenza virus with unspecified type of pneumonia; J45.909 Unspecified asthma, uncomplicated; E83.51 Hypocalcemia; I10 Essential (primary) hypertension; Y83.6 Removal of other organ (partial) (total) as the cause of abnormal reaction of the patient, or of later complication, without mention of misadventure at the time of the procedure
CPT/HCPCS: 99213; G0463

== ENCOUNTER 2024-11-30 08:34 | Outpatient (AMB) | payer MEDICAID, SELFPAY ==
[2024-11-30 08:42] VITALS: BP 119/87; PULSE 77; RESP 17; TEMP 36.4; O2SAT 97; BMI 21.4
--- NOTE | 2024-11-30 08:42 | GYNCLNT_ITS ---
Vital Signs 11/30/24 08:42 Height 1.5 m Height Method Stated Weight 48.137 kg Weight Measurement Method Standing Scale BMI 21.4 BP 119/87 H Blood Pressure Source Automatic Cuff Blood Pressure Location Right Upper Arm Position Sitting Respiration 17 Pulse 77 Pulse Source Monitor Temp 97.6 F Temp Source Temporal Artery Scan Pulse Oximetry (%) 97 Oxygen Delivery Method Room Air Allergies/Home Meds Allergies & Medications Allergies ketorolac (From Toradol) Allergy (Mild, Verified 11/30/24 08:43) Swelling of face lactulose Allergy (Mild, Verified 11/30/24 08:43) Swelling of face avocado Allergy (Verified 11/30/24 08:43) Medication Reconciliation metoprolol tartrate 25 mg tablet 25 mg PO QDAY 04/28/20 [History Confirmed 11/30/24] docusate sodium 100 mg capsule (Stool Softener) 100 mg PO QDAY 30 days #30 caps 11/21/24 [Rx Confirmed 11/30/24] albuterol sulfate 90 mcg/actuation aerosol inhaler 2 puff inhalation Q4H PRN shortness of breath or wheezing #8.5 grams 11/24/24 [Rx Confirmed 11/30/24] benzonatate 100 mg capsule 200 mg (2 x 100 mg) PO TID PRN cough #30 caps 11/24/24 [Rx Confirmed 11/30/24] amoxicillin 875 mg-potassium clavulanate 125 mg tablet 1 tab PO BID 7 days #14 tabs 11/26/24 [Rx Confirmed 11/30/24] Intake Visit Data Collection New Patient or Established: Established Patient (seen at [facility] within 3 years) Reason for Visit:: WOUND CHECK Seen by Clinical Staff ONLY (RN/MA): No Motorcycle Fabricator Required: No Do You Feel Safe at Home: Yes Authorities Contacted: N/A PCP or OBGYN visit in last 3 months: Yes Date of Last PCP or OBGYN visit: 11/26/24 Hx Now: No Pain Present Currently: Yes Pain Location: Abdomen Pain Scale Used: Allred-Hazel/Numerical Pain scale:: 8 Smoking Status Smoking Status: 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 1. Little interest or pleasure in doing things: not at all 2. Feeling down, depressed, or hopeless: not at all Total score: 0 PHQ-9 3. Trouble falling or staying asleep, or sleeping too much: Not at all 4. Feeling tired or having little energy: Not at all 5. Poor appetite or overeating: Not at all 6. Feeling bad about yourself - or that you are a failure or have let yourself or your family down: Not at all 7. Trouble concentrating on things, such as reading the newspaper or watching television: Not at all 8. Moving or speaking so slowly that other people could have noticed? - Or the opposite - being so fidgety or restless that you have been moving around a lot more than usual: not at all 9. Thoughts that you would be better off or of hurting yourself in some way: Not at all Total score: 0 If you checked off any problems, how difficult have these problems made it for you to do your work, take care of things at home, or get along with other people?: not difficult at all Source: Developed by Drs. Celestine Correa, Ewa Villegas, Shaggy Cortes and colleagues, with an educational roger from [employer]. Depression screen completed yes Social History Living Situation History Lives With: Family Housing: House Housing Other:: Pt resides with and dtr Tobacco History Smoking Status: Never smoker Second Hand Smoke Exposure: Yes ( smokes) Alcohol History Alcohol Intake: Former Alcohol Intake Frequency: holidays/special occasions only Domestic Abuse History Do You Feel Safe at Home: Yes History of Present Illness HPI Narrative Patient reports that her cough, which was the primary concern during her last visit, has now resolved. She mentions experiencing itchiness around the surgical site, particularly where the tape is applied. Minoo also notes some discomfort in her stomach area, describing it as a feeling she gets all the time when she eats or walks. She acknowledges that this discomfort is likely due to her recent major surgery. She expresses relief that her cough is gone, recognizing it as the cause of her previous complications. She mentions that the abdominal binder she's been using has been helpful, making it easier for her to move without having to push her stomach. The patient also reports some eye-related concerns, mentioning eye drops but not specifying any particular symptoms. She is a patient with a history of vertical incision hysterectomy 12 days ago, who previously presented with intractable cough causing separation of the skin and bleeding. The patient appears to be recovering from her surgery, with improvement in her primary symptom (cough) but ongoing expected post-surgical discomfort and healing-related sensations. 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 Reports itchiness around surgical site, eye itchiness, abdominal discomfort with eating and walking, and mild abdominal pain. Exam General General Appearance: alert, in no apparent distress and healthy appearing Head Head exam: atraumatic Neck Neck exam: Present normal inspection and trachea midline Chest Chest inspection: Present normal inspection and symmetric chest wall rise Abdominal Abdominal exam: Present other (- Abdomen: Surgical wound from vertical incision hysterectomy observed. Skin around the incision is joining. Some itchiness noted around the tape. - Skin: Surgical wound dressing present. Tape removed during examination. New dressing applied.) External exam: Present normal external exam; Absent tenderness Neuro Neurological exam: Present oriented X3 Psych Psychiatric exam: Present normal affect and normal mood Office Procedures OB Clinic LOC & Office Proc's Nursing/Assessment Patient Status: Established Patient OB Clinic Nursing Assessment: Medication Reconciliation, Update PMH in EMR and Vital Signs OB Clinic Coordination of Care: Complex Care and Chronic Disease 1-5, Consent,records obtained, informed consent, Education Simp Pt/Fam and Staff clarify orders Miscellaneous Interventions: Wound Cleaning/Preperation Established Patient Charge Established Patient Point Assignment: 110 Established Patient Point Charge: EP Level 3 (80-115) Assessment & Plan Diagnosis / Problem List (1) Wound dehiscence: Status: Acute (2) S/P abdominal hysterectomy: Status: Acute (3) Other acute postprocedural pain: Status: Acute (4) Uterine mass: Status: Acute Plan Post-operative wound dehiscence Plan: - Continue wound care with current packing. - Patient to remove packing in 1 week. - After packing removal, leave wound open to air and keep dry. - Follow-up appointment scheduled in 1 week for staple removal and wound reassessment. - Patient instructed to return sooner if any concerns arise. - Advised to use [id number] Benadryl cream for periincisional itching as needed. Post-operative pain Plan: - Continue current pain management regimen. - Advised patient that some degree of discomfort is normal in the early post- operative period. - Encouraged use of abdominal binder for support and comfort. Eye irritation Plan: - Advised against use of eye drops, especially those containing antibiotics or steroids. - Recommended splashing with cool water for symptomatic relief if itchy. - Instructed to avoid rubbing eyes. - Reassurance provided that the issue should resolve with time.
== END 2024-11-30 09:14 | disposition home or self-care (01) ==
LOC: HODSOBC 08:34
PROVIDERS: Supervising Provider Obstetrics & Gynecology; Visit Provider Obstetrics & Gynecology
DX: T81.31XA Disruption of external operation (surgical) wound, not elsewhere classified, initial encounter (principal); G89.18 Other acute postprocedural pain; N85.8 Other specified noninflammatory disorders of uterus; H57.89 Other specified disorders of eye and adnexa; Z90.710 Acquired absence of both cervix and uterus; Y83.6 Removal of other organ (partial) (total) as the cause of abnormal reaction of the patient, or of later complication, without mention of misadventure at the time of the procedure; Z88.6 Allergy status to analgesic agent; Z88.8 Allergy status to other drugs, medicaments and biological substances; Z91.018 Allergy to other foods
CPT/HCPCS: 99213; G0463

== ENCOUNTER 2024-12-07 08:28 | Outpatient (AMB) | payer MEDICAID, SELFPAY ==
--- NOTE | 2024-12-07 08:46 | GYNCLNT_ITS ---
Vital Signs 12/07/24 08:47 Height 1.5 m Height Method Stated Weight 50.065 kg Weight Measurement Method Standing Scale BMI 22.2 BP 126/81 Blood Pressure Source Automatic Cuff Blood Pressure Location Left Upper Arm Position Sitting Respiration 18 Pulse 64 Pulse Source Monitor Temp 97.2 F Temp Source Oral Pulse Oximetry (%) 98 Oxygen Delivery Method Room Air Allergies/Home Meds Allergies & Medications Allergies ketorolac (From Toradol) Allergy (Mild, Verified 12/07/24 08:47) Swelling of face lactulose Allergy (Mild, Verified 12/07/24 08:47) Swelling of face avocado Allergy (Verified 12/07/24 08:47) Intake Visit Data Collection New Patient or Established: Established Patient (seen at [facility] within 3 years) Reason for Visit:: STITCHES REMOVAL Seen by Clinical Staff ONLY (RN/MA): No Geriatric Nursing Assistant Required: No Do You Feel Safe at Home: Yes Authorities Contacted: N/A PCP or OBGYN visit in last 3 months: Yes Date of Last PCP or OBGYN visit: 11/30/24 Hx Now: No Are you currently on any form of Control: No Pain Present Currently: No Pain Scale Used: Allred-Hazel/Numerical Pain scale:: 0 Smoking Status Smoking Status: Never smoker 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 Menstrual regularity: regular Flow: normal Monthly: No Menopausal: No Currently sexually active: Yes 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 comments: 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 1. Little interest or pleasure in doing things: not at all 2. Feeling down, depressed, or hopeless: not at all Total score: 0 PHQ-9 3. Trouble falling or staying asleep, or sleeping too much: Not at all 4. Feeling tired or having little energy: Not at all 5. Poor appetite or overeating: Not at all 6. Feeling bad about yourself - or that you are a failure or have let yourself or your family down: Not at all 7. Trouble concentrating on things, such as reading the newspaper or watching television: Not at all 8. Moving or speaking so slowly that other people could have noticed? - Or the opposite - being so fidgety or restless that you have been moving around a lot more than usual: not at all 9. Thoughts that you would be better off or of hurting yourself in some way: Not at all Total score: 0 If you checked off any problems, how difficult have these problems made it for you to do your work, take care of things at home, or get along with other people?: not difficult at all Source: Developed by Drs. Celestine Correa, Ewa Villegas, Shaggy Cortes and colleagues, with an educational roger from [employer]. 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 She reports ongoing pain and tightness in the surgical area, which she describes as becoming tight. The patient is now approximately 2 weeks and 1-2 days post-surgery. She mentions that the pain becomes tight, which she is told is part of the healing process. The patient is informed that it typically takes about a month for the pain to subside completely. She does not report any other specific symptoms or complications. Patient confirms that her cough, which was previously an issue, has not returned. Minoo is adhering to postoperative care instructions and is actively engaging in walking to promote recovery. She is advised to continue her activity, as it will help the muscles regain strength and reduce stiffness. The patient is instructed on wound care, including cleaning the incision site gently with soap and water, allowing it to air dry, and avoiding scrubbing with a towel. Patient reports positive for pain and tightness in the abdominal area. Exam Narrative Physical exam: - Abdomen: Surgical site examined. Vertical incision noted. [place] present and removed during examination. Skin has closed up at the incision site. - Skin: Incision site appears to be healing. No signs of infection or complications observed. General General Appearance: alert, in no apparent distress and healthy appearing Head Head exam: atraumatic Neck Neck exam: Present normal inspection and trachea midline Chest Chest inspection: Present normal inspection and symmetric chest wall rise External exam: Present normal external exam; Absent tenderness Neuro Neurological exam: Present oriented X3 Psych Psychiatric exam: Present normal affect and normal mood Office Procedures OB Clinic LOC & Office Proc's Nursing/Assessment Patient Status: Established Patient OB Clinic Nursing Assessment: Medication Reconciliation, Update PMH in EMR and Vital Signs OB Clinic Coordination of Care: Education Complex Pt/Fam, Consent,records obtained, informed consent, Lab and Imaging orders, Results/Orders obtained and Staff clarify orders Miscellaneous Interventions: Staple/Suture Removal Established Patient Charge Established Patient Point Assignment: 100 Established Patient Point Charge: EP Level 3 (80-115) Assessment & Plan Diagnosis / Problem List (1) Wound dehiscence: Status: Acute (2) S/P abdominal hysterectomy: Status: Acute Plan Status post total abdominal hysterectomy Plan: - Remove yony during this visit. - Discontinue bandages. - Instruct patient on wound care: ? Clean incision site gently with soap and water. ? Allow water to flow over the incision. ? Avoid scrubbing with towel. ? Let incision air dry. - Encourage continued ambulation and gradual increase in activity. - Follow-up appointment scheduled in 2 weeks.
[2024-12-07 08:47] VITALS: BP 126/81; PULSE 64; RESP 18; TEMP 36.2; O2SAT 98; BMI 22.2
== END 2024-12-07 09:19 | disposition home or self-care (01) ==
LOC: HODSOBC 08:28
PROVIDERS: Supervising Provider Obstetrics & Gynecology; Visit Provider Obstetrics & Gynecology
DX: T81.31XD Disruption of external operation (surgical) wound, not elsewhere classified, subsequent encounter (principal); Z90.710 Acquired absence of both cervix and uterus; Y83.6 Removal of other organ (partial) (total) as the cause of abnormal reaction of the patient, or of later complication, without mention of misadventure at the time of the procedure
CPT/HCPCS: 99213; G0463

== ENCOUNTER 2024-12-17 08:29 | Outpatient (AMB) | payer MEDICAID, SELFPAY ==
[2024-12-17 08:40] VITALS: BP 136/92; PULSE 66; RESP 17; TEMP 36.3; O2SAT 96; BMI 22.4
--- NOTE | 2024-12-17 08:40 | GYNCLNT_ITS ---
Vital Signs 12/17/24 08:40 Height 1.5 m Height Method Stated Weight 50.462 kg Weight Measurement Method Standing Scale BMI 22.4 BP 136/92 H Blood Pressure Source Automatic Cuff Blood Pressure Location Right Upper Arm Position Sitting Respiration 17 Pulse 66 Pulse Source Monitor Temp 97.4 F Temp Source Temporal Artery Scan Pulse Oximetry (%) 96 Oxygen Delivery Method Room Air Allergies/Home Meds Allergies & Medications Allergies ketorolac (From Toradol) Allergy (Mild, Verified 12/17/24 08:41) Swelling of face lactulose Allergy (Mild, Verified 12/17/24 08:41) Swelling of face avocado Allergy (Verified 12/17/24 08:41) Medication Reconciliation metoprolol tartrate 25 mg tablet 25 mg PO QDAY 04/28/20 [History Confirmed 12/17/24] docusate sodium 100 mg capsule (Stool Softener) 100 mg PO QDAY 30 days #30 caps 11/21/24 [Rx Confirmed 12/17/24] albuterol sulfate 90 mcg/actuation aerosol inhaler 2 puff inhalation Q4H PRN shortness of breath or wheezing #8.5 grams 11/24/24 [Rx Confirmed 12/17/24] benzonatate 100 mg capsule 200 mg (2 x 100 mg) PO TID PRN cough #30 caps 11/24/24 [Rx Confirmed 12/17/24] Intake Visit Data Collection New Patient or Established: Established Patient (seen at [facility] within 3 years) Reason for Visit:: FOLLOW UP Seen by Clinical Staff ONLY (RN/MA): No Recyclable Products Sorter Required: No Do You Feel Safe at Home: Yes Authorities Contacted: N/A PCP or OBGYN visit in last 3 months: Yes Date of Last PCP or OBGYN visit: 12/07/24 Hx Now: No Are you currently on any form of Control: No Pain Present Currently: No Pain Scale Used: Allred-Hazel/Numerical Pain scale:: 0 Smoking Status Smoking Status: Never smoker 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 Currently sexually active: Yes Additional comments: 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 1. Little interest or pleasure in doing things: not at all 2. Feeling down, depressed, or hopeless: not at all Total score: 0 PHQ-9 3. Trouble falling or staying asleep, or sleeping too much: Not at all 4. Feeling tired or having little energy: Not at all 5. Poor appetite or overeating: Not at all 6. Feeling bad about yourself - or that you are a failure or have let yourself or your family down: Not at all 7. Trouble concentrating on things, such as reading the newspaper or watching television: Not at all 8. Moving or speaking so slowly that other people could have noticed? - Or the opposite - being so fidgety or restless that you have been moving around a lot more than usual: not at all 9. Thoughts that you would be better off or of hurting yourself in some way: Not at all Total score: 0 If you checked off any problems, how difficult have these problems made it for you to do your work, take care of things at home, or get along with other people?: not difficult at all Source: Developed by Drs. Celestine Correa, Ewa Villegas, Shaggy Cortes and colleagues, with an educational roger from [employer]. Depression screen completed yes Social History Living Situation History Marital Status: Lives With: Family Housing: House Housing Other:: Pt resides with and dtr Tobacco History Smoking Status: Never smoker Second Hand Smoke Exposure: Yes ( smokes) Alcohol History Alcohol Intake: Former Alcohol Intake Frequency: holidays/special occasions only Domestic Abuse History Do You Feel Safe at Home: Yes History of Present Illness HPI Narrative Patient reports experiencing some discomfort related to her surgical incision. She mentions feeling a pulling sensation when she walks for longer periods, which she attributes to the surgical site. She notes that the discomfort is not as severe as it was initially, stating it's not too big now. The patient has been proactive in her recovery, performing daily pelvic exercises. She inquires about restrictions on activities, particularly in relation to an upcoming trip to [facility]. The patient also expresses concerns about potential vaginal dryness and soreness following the hysterectomy, which may impact sexual activity. She is interested in understanding how to manage these symptoms and what to expect as she resumes normal activities. She is a 49-year-old female who is 4 weeks status post exploratory laparotomy with abdominal hysterectomy and removal of a very large leiomyoma. Her obstetric history includes one previous delivery. She performs pelvic exercises daily and is planning a trip to [facility] after December 24. She has been cleared to resume sexual activity with caution. Reports positive for pulling sensation in abdominal incision area when walking for longer periods and vaginal dryness. Exam Narrative Physical exam: - Abdomen: Incision site from recent exploratory laparotomy and abdominal hysterectomy observed. [place] previously removed. Small part of incision noted to be drying and expected to come out on its own. General General Appearance: alert, in no apparent distress and healthy appearing Head Head exam: atraumatic Neck Neck exam: Present normal inspection and trachea midline Chest Chest inspection: Present normal inspection and symmetric chest wall rise External exam: Present normal external exam; Absent tenderness Neuro Neurological exam: Present oriented X3 Psych Psychiatric exam: Present normal affect and normal mood Office Procedures OB Clinic LOC & Office Proc's Nursing/Assessment Patient Status: Established Patient OB Clinic Nursing Assessment: Medication Reconciliation, Update PMH in EMR and Vital Signs OB Clinic Coordination of Care: Complex Care and Chronic Disease 1-5, Consent,records obtained, informed consent, Education Simp Pt/Fam and Staff clarify orders Established Patient Charge Established Patient Point Assignment: 85 Established Patient Point Charge: EP Level 3 (80-115) Assessment & Plan Diagnosis / Problem List (1) S/P abdominal hysterectomy: Status: Acute (2) Other acute postprocedural pain: Status: Acute Plan Status post exploratory laparotomy with abdominal hysterectomy and leiomyoma removal Plan: - No more restrictions on activities, except avoid vigorous running and weightlifting. - Encourage use of moisturizer on incision site to keep it moist. - Advise that pulling sensation when walking is normal and expected to improve. - Cleared for swimming and resumption of sexual activity with caution. - Inform patient that initial sexual activity may result in minor vaginal bleeding. - Recommend use of lubricant for potential vaginal dryness post-hysterectomy. - Schedule follow-up appointment in one month for internal examination. - Continue current management and monitor for any complications. - Continue daily pelvic exercises.
== END 2024-12-17 08:56 | disposition home or self-care (01) ==
LOC: HODSOBC 08:29
PROVIDERS: Supervising Provider Obstetrics & Gynecology; Visit Provider Obstetrics & Gynecology
DX: G89.18 Other acute postprocedural pain (principal); Z90.710 Acquired absence of both cervix and uterus
CPT/HCPCS: 99213; G0463

== ENCOUNTER 2025-01-21 11:18 | Outpatient (AMB) | payer MEDICAID, SELFPAY ==
[2025-01-21 11:30] VITALS: BP 153/96; PULSE 73; RESP 17; TEMP 36.7; O2SAT 97; BMI 24.0
--- NOTE | 2025-01-21 11:30 | AMB.GYNCLNOT ---
Vital Signs 01/21/25 11:30 Height 1.5 m Height Method Measured Weight 53.977 kg Weight Measurement Method Standing Scale BMI 24.0 BP 153/96 H Blood Pressure Source Automatic Cuff Blood Pressure Location Right Upper Arm Position Sitting Respiration 17 Pulse 73 Pulse Source Monitor Temp 98.0 F Temp Source Temporal Artery Scan Pulse Oximetry (%) 97 Oxygen Delivery Method Room Air Allergies/Home Meds Allergies & Medications Allergies ketorolac (From Toradol) Allergy (Mild, Verified 01/21/25 11:31) Swelling of face lactulose Allergy (Mild, Verified 01/21/25 11:31) Swelling of face avocado Allergy (Verified 01/21/25 11:31) Medication Reconciliation metoprolol tartrate 25 mg tablet 25 mg PO QDAY 04/28/20 [History Confirmed 01/21/25] albuterol sulfate 90 mcg/actuation aerosol inhaler 2 puff inhalation Q4H PRN shortness of breath or wheezing #8.5 grams 11/24/24 [Rx Confirmed 01/21/25] benzonatate 100 mg capsule 200 mg (2 x 100 mg) PO TID PRN cough #30 caps 11/24/24 [Rx Confirmed 01/21/25] conj estrogen-medroxyprogesterone 0.625 mg-2.5 mg tablet (Prempro) 1 tab PO QDAY 90 days #90 tabs 01/21/25 [Rx] Intake Visit Data Collection New Patient or Established: Established Patient (seen at [facility] within 3 years) Reason for Visit:: SURGERY FOLLOW UP Consent obtained for Telemed Visit: No Seen by Clinical Staff ONLY (RN/MA): No Seismometer Operator Required: No Do You Feel Safe at Home: Yes Authorities Contacted: N/A PCP or OBGYN visit in last 3 months: Yes Date of Last PCP or OBGYN visit: 12/17/24 Hx Now: No Are you currently on any form of Control: No Pain Present Currently: No Pain Scale Used: Allred-Hazel/Numerical Pain scale:: 0 Smoking Status Smoking Status: Never smoker 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 1. Little interest or pleasure in doing things: not at all PHQ-9 8. Moving or speaking so slowly that other people could have noticed? - Or the opposite - being so fidgety or restless that you have been moving around a lot more than usual: not at all Source: Developed by Drs. Celestine Correa, Ewa Villegas, Shaggy Cortes and colleagues, with an educational roger from [employer]. Social History Living Situation History Lives With: Family Housing: House Housing Other:: Pt resides with and dtr Tobacco History Smoking Status: Never smoker Second Hand Smoke Exposure: Yes ( smokes) Alcohol History Alcohol Intake: Former Alcohol Intake Frequency: holidays/special occasions only Domestic Abuse History Do You Feel Safe at Home: Yes History of Present Illness HPI Narrative Patient reports persistent abdominal hardness, particularly in the area where the surgery was performed. She is experiencing night sweats, often waking up around 4 AM sweating profusely, which is impacting her sleep quality. [place] mentions concerns about her sexual health, reporting vaginal dryness and decreased sensation during intimate activities. She is seeking to return to work but with modified hours, preferably 8-hour shifts, 5 days a week, ending at 12:30 AM at the latest. She cites concerns about her urinary health and the need for adequate rest as reasons for this request. She is a female patient presenting for a 2-month postoperative follow-up visit after undergoing a total abdominal hysterectomy on November 20, 2024. The patient reports no other significant symptoms or concerns and appears to be recovering well from the surgery overall, with no mention of complications or unexpected postoperative issues. 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 Patient is advised to increase physical activity, including going to the gym, running, cycling, and swimming. Exam General General Appearance: alert, in no apparent distress and healthy appearing Head Head exam: atraumatic Neck Neck exam: Present normal inspection and trachea midline Chest Chest inspection: Present normal inspection and symmetric chest wall rise External exam: Present normal external exam; Absent tenderness Neuro Neurological exam: Present oriented X3 Psych Psychiatric exam: Present normal affect and normal mood Office Procedures OB Clinic LOC & Office Proc's Nursing/Assessment Patient Status: Established Patient OB Clinic Nursing Assessment: Medication Reconciliation, Update PMH in EMR and Vital Signs OB Clinic Coordination of Care: Complex Care and Chronic Disease 1-5, Consent,records obtained, informed consent, Education Simp Pt/Fam and Results/Orders obtained Established Patient Charge Established Patient Point Assignment: 80 Established Patient Point Charge: EP Level 3 (80-115) Assessment & Plan Diagnosis / Problem List (1) Menopausal hot flushes: Status: Acute Plan Status post total abdominal hysterectomy: - Patient is 2 months post total abdominal hysterectomy performed on 11/20/2024. - Persistent abdominal hardness reported, expected due to extensive surgery and large fibroid removal. - Night sweats and hot flashes present, likely due to postoperative hormonal changes. - Vaginal dryness and decreased sexual sensation reported, common post-hysterectomy symptoms. - Overall recovery progressing as expected. Plan: - Provide work restriction letter: ? Limit shifts to end by 12:30 AM. ? Maximum 8-hour shifts, 5 days per week. - Encourage gradual increase in physical activity to improve abdominal muscle tone. - Consider low-dose hormone replacement therapy if symptoms persist after one more month. - Prescribe low-dose hormone replacement therapy for vaginal dryness and sexual function concerns. ? [facility]. - Follow up as needed for symptom management. Menopausal symptoms: - Patient experiencing night sweats, hot flashes, vaginal dryness, and decreased sexual sensation. - Symptoms likely due to recent hysterectomy and subsequent hormonal changes. Plan: - Prescribe low-dose hormone replacement therapy. ? Send prescription to [facility]. - Educate patient on expected effects of hormone therapy on sweating and sexual function. - Advise patient to monitor symptoms and report any changes or concerns. - Reassess effectiveness of hormone therapy at next follow-up.
== END 2025-01-21 11:55 | disposition home or self-care (01) ==
LOC: HODSOBC 11:18
PROVIDERS: Supervising Provider Obstetrics & Gynecology; Visit Provider Obstetrics & Gynecology
DX: N95.1 Menopausal and female climacteric states (principal); R23.2 Flushing; R61 Generalized hyperhidrosis; I10 Essential (primary) hypertension; Z90.710 Acquired absence of both cervix and uterus; Z88.6 Allergy status to analgesic agent; Z91.011 Allergy to milk products; Z91.018 Allergy to other foods
CPT/HCPCS: 99213; G0463